=== PATIENT | male | born 1975 | race Caucasian/White ===

== ENCOUNTER 2023-11-29 09:25 | Emergency (ER) | payer BC, SELFPAY ==
[2023-11-29 09:40] VITALS: BP 138/98; PULSE 88; TEMP 36.8; O2SAT 98; BMI 27.9
[2023-11-29 10:09] LABS: Basophils Absolute Auto 0.1 10^3/uL (0.0-0.1); Basophils Percent Auto 0.7 % (0.2-2.0); Eosinophils Absolute Auto 0.1 10^3/uL (0.0-0.7); Eosinophils Percent Auto 1.1 % (0.9-7.0); Hematocrit 45.7 % (42.0-54.0); Hemoglobin 15.9 g/dL (14.0-18.0); Immature Granulocytes Abs Auto 0.13 10^3/uL (0.00-0.03); Immature Granulocytes Pct Auto 1.5 % (0.0-0.5); Lymphocytes Absolute Auto 2.2 10^3/uL (1.2-3.8); Lymphocytes Percent Auto 26.7 % (20.5-60.0); Mean Corpuscular HGB Conc 34.8 g/dL (29.9-35.2); Mean Corpuscular Hemoglobin 31.8 pg (25.9-34.0); Mean Corpuscular Volume 91.4 fL (80.0-94.0); Mean Platelet Volume 9.6 fL (9.5-13.5); Monocytes Absolute Auto 0.8 10^3/uL (0.3-0.8); Monocytes Percent Auto 8.9 % (1.7-12.0); Neutrophils Absolute Auto 5.1 10^3/uL (1.4-6.5); Neutrophils Percent Auto 61.1 % (43.0-75.0); Platelet Count 224 10^3/uL (150-450); White Blood Count 8.4 10^3/uL (4.0-11.0)
[2023-11-29 10:15] LABS: Anion Gap 11.8; BUN Creatinine Ratio 13.5; Calcium 9.5 mg/dL (8.5-10.1); Chloride 100 mmol/L (98-107); Estimated GFR (African America >60 (>=60 mL/min/1.73m^2); Estimated GFR (Non-African Ame >60 (>=60 mL/min/1.73m^2); Glucose 130 mg/dL (74-106); Potassium 3.8 mmol/L (3.5-5.1); Sodium 136 mmol/L (136-145)
[2023-11-29 10:16] LABS: Bilirubin Urine NEGATIVE (NEGATIVE); Blood Urine NEGATIVE (NEGATIVE); Clarity Urine CLEAR (CLEAR); Color Urine LT. YELLOW (YELLOW); Glucose Urine UA NEGATIVE (NEGATIVE); Ketones Urine NEGATIVE (NEGATIVE); Leukocyte Esterase Urine NEGATIVE (NEGATIVE); Nitrite Urine NEGATIVE (NEGATIVE); Protein Urine NEGATIVE (NEG/TRACE); Specific Gravity Urine 1.025 (1.005-1.025); Urobilinogen Urine 0.2 EU/dL (0.2-1.0); pH Urine 6.5 (5.0-9.0)
[2023-11-29 10:28] LABS: WBC Urine NONE SEEN #/HPF (NONE SEEN)
[2023-11-29 10:29] LABS: Bacteria Urine NONE SEEN #/HPF (NONE SEEN); Cast Seen? NONE SEEN #/LPF (NONE SEEN); Crystals Seen? None Seen #/HPF (None Seen); Mucus Urine NONE SEEN (NONE SEEN); RBC Urine NONE SEEN #/HPF (0-2); Squamous Epithelial Cell Urine RARE #/LPF (NONE/RARE); Urine Culture Indicated NO
--- NOTE | 2023-11-29 10:35 | ED.MALEGU1 ---
HPI - Male Genitourinary General Chief complaint: Urogenital-Male Stated complaint: URINARY ISSUE, BACK PAIN Time Seen by Provider: 11/29/23 09:28 Source: patient Mode of arrival: walk-in Limitations: no limitations History of Present Illness HPI Narrative: 48-year-old male presents to the emergency department for frequency of urination. He does not have dysuria or hematuria. He has had this issue for several days and he is had this looked at in the past. No specific cause was ever found. He has had borderline diabetes but last time they checked his sugar it was not elevated. He is not on any oral hypoglycemics. No fever or unusual back pain. Related Data Home Medications ?Medication ?Instructions ?Recorded ?Confirmed No Known Home Medications 11/29/23 11/29/23 Allergies Allergy/AdvReac Type Severity Reaction Status Date / Time penicillamine Allergy Mild Unknown Verified 11/29/23 09:40 Review of Systems ROS Narrative A ten point review of systems is negative except as noted above. PFSH PFSH Social History Little interest or pleasure in doing things: not at all Feeling down, depressed, or hopeless: not at all Exam Narrative Exam Narrative: Nurses note and vital signs reviewed and patient is not hypoxic. General: The patient appears well and in no apparent distress. Patient is resting comfortably on cart. Skin: Warm, dry, no pallor noted. There is no rash noted. Head: Normocephalic, atraumatic Eye: Normal conjunctiva, no drainage Ears, Nose, Mouth, and Throat: oral mucosa is moist. Nares patent. Cardiovascular: Regular Rate and Rhythm Respiratory: Patient is in no distress, no accessory muscle use, lungs are clear to auscultation, no wheezing, rales or rhonchi Back: non-tender, no CVA tenderness bilaterally to percussion. GI: Soft and nontender Musculoskeletal: The patient has no evidence of calf tenderness, no pitting edema, symmetrical pulses noted bilaterally Neurological: A&O, normal speech Psychiatric: Cooperative Constitutional Vital Signs, click to edit/add: Last Vital Signs Temp 98.2 F 11/29/23 09:40 Pulse 88 11/29/23 09:40 Resp 18 11/29/23 09:40 BP 138/98 H 11/29/23 09:40 Pulse Ox 98 11/29/23 09:40 O2 Del Method Room Air 11/29/23 09:40 Course Vital Signs Vital signs: Vital Signs Temperature 98.2 F 11/29/23 09:40 Pulse Rate 88 11/29/23 09:40 Respiratory Rate 18 11/29/23 09:40 Blood Pressure 138/98 H 11/29/23 09:40 Pulse Oximetry 98 11/29/23 09:40 Oxygen Delivery Method Room Air 11/29/23 09:40 Temperature 98.2 F 11/29/23 09:40 Pulse Rate 88 11/29/23 09:40 Respiratory Rate 18 11/29/23 09:40 Blood Pressure 138/98 H 11/29/23 09:40 Pulse Oximetry 98 11/29/23 09:40 Oxygen Delivery Method Room Air 11/29/23 09:40 MDM - Male Genitourinary MDM Narrative Medical decision making narrative: CBC, BMP, and urinalysis are negative. The cause is uncertain. He is being referred to urology for follow-up. Treatment diagnosis and follow-up were discussed with the patient. Differential Diagnosis Differential diagnosis: Likely urinary tract infection, urethritis, prostatitis and acute retention of urine Lab Data Attestation: I reviewed the patient's lab results. Labs: Lab Results 11/29/23 11/29/23 Range/Units 09:55 10:00 WBC 8.4 (4.0-11.0) 10^3/uL RBC 5.00 (4.70-6.10) 10^6/uL Hgb 15.9 (14.0-18.0) g/dL Hct 45.7 (42.0-54.0) % MCV 91.4 (80.0-94.0) fL MCH 31.8 (25.9-34.0) pg MCHC 34.8 (29.9-35.2) g/dL RDW 12.0 (11.0-15.0) % Plt Count 224 (150-450) 10^3/uL MPV 9.6 (9.5-13.5) fL Neut % (Auto) 61.1 (43.0-75.0) % Lymph % (Auto) 26.7 (20.5-60.0) % [place] % (Auto) 8.9 (1.7-12.0) % Eos % (Auto) 1.1 (0.9-7.0) % Baso % (Auto) 0.7 (0.2-2.0) % Neut # (Auto) 5.1 (1.4-6.5) 10^3/uL Lymph # (Auto) 2.2 (1.2-3.8) 10^3/uL [place] # (Auto) 0.8 (0.3-0.8) 10^3/uL Eos # (Auto) 0.1 (0.0-0.7) 10^3/uL Baso # (Auto) 0.1 (0.0-0.1) 10^3/uL Abs Immat Gran (auto) 0.13 H (0.00-0.03) 10^3/uL Imm/Tot Granulo (auto) 1.5 H (0.0-0.5) % Sodium 136 (136-145) mmol/L Potassium 3.8 (3.5-5.1) mmol/L Chloride 100 (98-107) mmol/L Carbon Dioxide 28.0 (21.0-32.0) mmol/L Anion Gap 11.8 BUN 15.0 (7.0-18.0) mg/dL Creatinine 1.11 (0.70-1.30) mg/dL Est GFR ( Amer) >60 (>=60 mL/min/1.73m^2) Est GFR (Non-Af Amer) >60 (>=60 mL/min/1.73m^2) BUN/Creatinine Ratio 13.5 Glucose 130 H (74-106) mg/dL Calcium 9.5 (8.5-10.1) mg/dL Urine Color Lt. yellow (YELLOW) Urine Clarity Clear (CLEAR) Urine pH 6.5 (5.0-9.0) Ur Specific [place] 1.025 (1.005-1.025) Urine Protein Negative (NEG/TRACE) mg/dL Urine Glucose (UA) Negative (NEGATIVE) mg/dL Urine Ketones Negative (NEGATIVE) mg/dL Urine Occult Blood Negative (NEGATIVE) Urine Nitrite Negative (NEGATIVE) Urine Bilirubin Negative (NEGATIVE) Urine Urobilinogen 0.2 (0.2-1.0) EU/dL Ur Leukocyte Esterase Negative (NEGATIVE) Urine RBC None seen (0-2) #/HPF Urine WBC None seen (NONE SEEN) #/HPF Ur Squamous Epith Cells Rare (NONE/RARE) #/LPF Urine Crystals None seen (None Seen) #/HPF Urine Bacteria None seen (NONE SEEN) #/HPF Urine Casts None seen (NONE SEEN) #/LPF Urine Mucus None seen (NONE SEEN) Ur Culture Indicated? No Discharge Plan Discharge Chief Complaint: Urogenital-Male Clinical Impression: Urinary frequency Patient Disposition: Home, Self-Care Time of Disposition Decision: 10:34 Condition: Good Mode of Transportation: Private Vehicle Prescriptions / Home Meds: No Action No Known Home Medications Print Language: Slovak Instructions: Urinary Urgency and Frequency (DC) Referrals: TOSHA GUAJARDO [Primary Care Provider] - 1 week Steven Alexis MD [Physician] - 1 week
[2023-11-29 10:40] VITALS: BP 134/78; PULSE 72; O2SAT 98
== END 2023-11-29 10:40 | disposition home or self-care (01) ==
PROVIDERS: Emergency Provider Emergency Medicine; PCP Physician Assistant
DX: R35.0 Frequency of micturition (principal)
CPT/HCPCS: 36415; 80048; 81001; 85025; 99283

== ENCOUNTER 2024-07-15 07:25 | Outpatient (OUT) | payer BC, SELFPAY ==
--- OUTSIDE RECORDS SUMMARY | 2024-07-15 07:27 | XMS_ITS | CCD ---
Author Organization [facility] Care Team Providers Care Processing Rep Name Role Phone JESSICA GUAJARDO Admitting Unavailable JESSICA GUAJARDO Attending Unavailable HELENA TIM Primary Care Unavailable CED JULES Consulting Unavailable JESSICA GUAJARDO Consulting Unavailable HELENA TIM Primary Care Physician Helena Tim MD Primary Care Provider Fran Montano MD Unavailable Damon WOLFE Attending Unavailable Leta Elizalde Attending Unavailable Leta Elizalde Attending Unavailable Helena Tim MD Primary Care Provider Alvin Lay DO Emergency Provider HELENA TIM Attending Unavailable JESSICA GUAJARDO Attending Unavailable JESSICA GUAJARDO Attending Unavailable Alvin Lay Attending Unavailable Alivn Lay Admitting Unavailable Helena Tim Primary Care Unavailable Allergies Allergy Classification Reported Allergen(s) Allergy Type Date of Onset Reaction(s) Facility (1 source) Penicillin Drug Allergy [facility] Repository (3 sources) Penicillins; Translations: [penicillins] Drug allergy 06-19-2024 [facility] (9 sources) Penicillin V Drug Allergy 07-14-2022 Unknown [facility] Work Phone: Medications Current Medications Medication Drug Class(es) Dates Sig (Normalized) Sig (Original) busPIRone hydrochloride 10 mg oral tablet (2 sources) Start: 06-25-2024 take 1 tablet by mouth twice daily as needed for anxiety busPIRone (Buspar) 10 MG tablet Indications: Generalized anxiety disorder (CMS/HCC) Take 1 tablet (10 mg) by mouth 2 (two) times a day as needed (Anxiety) 60 tablet 06/25/2024 Active Multivitamin preparation (1 source) Start: 12-20-2023 multivitamin Refill(s) 0 Start Date: 12/20/23 Status: Ordered Ebro (No Known Home Meds) (1 source) Start: 06-19-2024 Ebro (No Known Home Meds) Active June 19, 2024 12:00am Saw palmetto extract (1 source) Start: 12-20-2023 saw palmetto See Instructions, Refill(s) 0, Oral Start Date: 12/20/23 Status: Ordered Completed/Discontinued Medications Medication Drug Class(es) Dates Sig (Normalized) Sig (Original) omeprazole 20 mg delayed release oral capsule (6 sources) Proton Pump Inhibitor Start: 02-12-2023 End: 11-13-2023 take 1 capsule by mouth once daily in the morning omeprazole (PriLOSEC) [address] capsule Indications: Gastroesophageal reflux disease without esophagitis take 1 capsule by mouth every morning 30 capsule 02/12/2023 11/13/2023 Discontinued (Other) Start: 07-13-2022 End: 06-19-2024 take 1 tablet by mouth once daily Omeprazole 20 mg Tablet,Delayed Release (Dr/Ec) Discontinued 20 MG PO Daily July 13, 2022 12:00am June 19, 2024 8:04am Pneumatic Walking Boot unit (1 source) Start: 04-30-2023 End: 06-19-2024 Pneumatic Walking Boot unit Discontinued 0 .Route 1 April 30, 2023 1:00am June 19, 2024 8:04am As directed sulfamethoxazole 800 mg / trimethoprim 160 mg oral tablet (1 source) Dihydrofolate Reductase Inhibitor Antibacterial, Sulfonamide Antimicrobial Start: 07-13-2022 End: 04-30-2023 take 1 tablet by mouth every twelve hours Sulfamethoxazole- Trimethoprim (Bactrim Ds) 800-160 mg tablet Discontinued 1 TAB PO Q12H 14 7 July 13, 2022 12:00am April 30, 2023 10:56am 24 hr venlafaxine 75 mg extended release oral capsule (4 sources) Serotonin and Norepinephrine Reuptake Inhibitor Start: 02-12-2023 End: 11-13-2023 take 1 capsule by mouth once daily in the morning venlafaxine XR (Effexor XR) 75 MG 24 hr capsule Indications: Generalized anxiety disorder (CMS/HCC) take 1 capsule by mouth every morning 30 capsule 02/12/2023 11/13/2023 Discontinued (Other) Start: 07-13-2022 End: 06-19-2024 take 1 tablet by mouth once daily Venlafaxine 75 mg Tablet Discontinued 75 MG PO Daily July 13, 2022 12:00am June 19, 2024 8:04am Problems Active Problems Problem Classification Problem Date Documented Date Episodic/Chronic Anxiety disorders (11 sources) Generalized anxiety disorder; Translations: [Generalized anxiety disorder] Onset: 07-14-2022 07-14-2022 Chronic Cardiac dysrhythmias (6 sources) Palpitations; Translations: [Palpitations] 06-25-2024 Episodic Diabetes mellitus with complications (20 sources) Type 2 diabetes mellitus; Translations: [Type 2 diabetes mellitus with unspecified complications] Onset: 08-16-2022 Resolved: 06-24-2024 05-15-2023 Chronic Diabetes mellitus without complication (1 source) Type 2 diabetes mellitus without complication; Translations: [Type 2 diabetes mellitus without complications] Onset: 12-20-2023 Chronic Disorders of lipid metabolism (11 sources) Mixed hyperlipidemia; Translations: [Mixed hyperlipidemia] Onset: 07-14-2022 07-14-2022 Chronic Esophageal disorders (11 sources) Gastroesophageal reflux disease without esophagitis; Translations: [Gastro-esophageal reflux disease without esophagitis] Onset: 07-14-2022 07-14-2022 Chronic Genitourinary symptoms and ill-defined conditions (10 sources) Increased frequency of urination; Translations: [Frequency of micturition] Onset: 12-20-2023 Episodic Nonspecific chest pain (8 sources) Tight chest; Translations: [Other chest pain] Onset: 06-19-2024 06-19-2024 Episodic Other screening for suspected conditions (not mental disorders or infectious disease) (1 source) Encounter for screening for malignant neoplasm of prostate; Translations: [Screening for malignant neoplasm done] Onset: 12-20-2023 Episodic Urinary tract infections (1 source) Acute urinary tract infection; Translations: [Urinary tract infection, site not specified] 02-07-2023 Episodic Comment on above: Problem List clean-u p per request of Phys. EHR Cmte Past or Other Problems Problem Classification Problem Date Documented Da te Episodic/Chronic Diabetes mellitus without complication (9 sources) Impaired fasting glycemia; Translations: [Impaired fasting glucose] Onset: 07-14-2022 Resolved: 08-16-2022 08-16-2022 Episodic Other connective tissue disease (9 sources) Muscle pain; Translations: [Myalgia, unspecified site] Onset: 03-30-2023 03-30-2023 Episodic Other liver diseases (9 sources) ALT (SGPT) level raised; Translations: [Elevated ALT measurement] Onset: 07-14-2022 07-14-2022 Episodic Other nervous system disorders (9 sources) Disorder of muscle; Translations: [Myopathy, unspecified] Onset: 03-30-2023 Resolved: 05-15-2023 05-15-2023 Chronic Other nutritional; endocrine; and metabolic disorders (9 sources) Overweight; Translations: [Overweight] Onset: 07-14-2022 07-14-2022 Episodic Substance-related disorders (9 sources) Nicotine dependence; Translations: [Nicotine dependence, chewing tobacco, uncomplicated] Onset: 07-14-2022 Resolved: 05-15-2023 05-15-2023 Chronic Syncope (9 sources) Syncope; Translations: [Syncope and collapse] Onset: 11-13-2023 11-13-2023 Episodic Comment on above: Problem List clean-u p per request of Phys. EHR Cmte Results Test Name Value Interpretation Reference Range Facility Alanine aminotransferase [En zymatic activity/volume] in Serum or PlasmaOrdered By: Alvin Lay on 06-19-2024 ALT [Catalytic activity/Vol] Alanine aminotransferase [Enzymatic activity/volume] in Serum or Plasma 7-52 [facility] Albumin [Mass/volume] in Ser um or Plasma by Bromocresol green (BCG) dye binding methoOrdered By: Alvin Lay on 06-19-2024 Albumin BCG dye [Mass/Vol] Albumin [Mass/volume] in Serum or Plasma by Bromocresol green (BCG) dye binding metho 3.5-5.7 [facility] Alkaline phosphatase [Enzyma tic activity/volume] in Serum or PlasmaOrdered By: Alvin Lay on 06-19-2024 ALP [Catalytic activity/Vol] Alkaline phosphatase [Enzymatic activity/volume] in Serum or Plasma 34-104 [facility] Aspartate aminotransferase [ Enzymatic activity/volume] in Serum or PlasmaOrdered By: Alvin Lay on 06-19-2024 AST [Catalytic activity/Vol] Aspartate aminotransferase [Enzymatic activity/volume] in Serum or Plasma 13-39 [facility] B-Type Natriuretic Peptideon 06-19-2024 Natriuretic peptide B (Bld) [Mass/Vol] 10.0 pg/mL Normal 5-100 [facility] Comment on above: Result Comment: PERF ORMED BY: [place] [address] PATHOLOGIST [employer] YUSRA BE M.D. Performed By: #### P T, HEPATIC, HS TROP, BMP, CBC, BNP, CK #### [address] Basic Metabolic Panelon 05-28 Anion gap [Moles/Vol] 12.4 mmol/L Normal 6.0-15.0 [facility] Comment on above: Performed By: #### P T, HEPATIC, HS TROP, BMP, CBC, BNP, CK #### [address] Calcium [Mass/Vol] 9.7 mg/dL Normal 8.6-10.3 [facility] Comment on above: Performed By: #### P T, HEPATIC, HS TROP, BMP, CBC, BNP, CK #### [address] Chloride [Moles/Vol] 104 mmol/L Normal 98-107 [facility] Comment on above: Performed By: #### P T, HEPATIC, HS TROP, BMP, CBC, BNP, CK #### [address] CO2 [Moles/Vol] 23.5 mmol/L Normal 21.0-31.0 [facility] Comment on above: Performed By: #### P T, HEPATIC, HS TROP, BMP, CBC, BNP, CK #### [address] Creatinine [Mass/Vol] 0.98 mg/dL Normal 0.70-1.30 [facility] Comment on above: Performed By: #### P T, HEPATIC, HS TROP, BMP, CBC, BNP, CK #### [address] Creatinine Clr Calc Pharmacy 105.09 Normal [facility] Comment on above: Result Comment: PERF ORMED BY: [place] [address] PATHOLOGIST [employer] YUSRA BE M.D. Performed By: #### P T, HEPATIC, HS TROP, BMP, CBC, BNP, CK #### [address] GFR/1.73 sq M.predicted MDRD (S/P/Bld) [Vol rate/Area] mL/min/{1.73_m2} Normal [facility] Comment on above: Performed By: #### P T, HEPATIC, HS TROP, BMP, CBC, BNP, CK #### [address] Glucose [Mass/Vol] 104 mg/dL High 70-100 [facility] Comment on above: Result Comment: [place] Glucose Reference Range is dependent on time and content of last meal. Glucose of more than 200 mg/dL in a nonstressed, ambulatory subject supports the diagnosis of Diabetes Mellitus. ADA recommended reference range Performed By: #### P T, HEPATIC, HS TROP, BMP, CBC, BNP, CK #### [address] Potassium [Moles/Vol] 3.9 mmol/L Normal 3.5-5.1 [facility] Comment on above: Performed By: #### P T, HEPATIC, HS TROP, BMP, CBC, BNP, CK #### [address] Sodium [Moles/Vol] 136 mmol/L Normal 136-145 [facility] Comment on above: Performed By: #### P T, HEPATIC, HS TROP, BMP, CBC, BNP, CK #### [place] [address] [place] Urea nitrogen [Mass/Vol] 21 mg/dL Normal 7-25 [facility] Comment on above: Performed By: #### P T, HEPATIC, HS TROP, BMP, CBC, BNP, CK #### [facility] [address] [place] [address] [facility] Basophils Auto (Bld) [#/Vol] Ordered By: Alvin Lay on 06-19-2024 Basophils (Bld) [#/Vol] Automated basophil count 0.0-0.2 [facility] Basophils/100 WBC Auto (Bld) Ordered By: Alvin Lay on 06-19-2024 Basophils/100 WBC (Bld) Automated basophil % . [facility] Bilirubin.direct [Mass/volum e] in Serum or PlasmaOrdered By: Alvin Lay on 06-19-2024 Bilirubin.direct [Mass/Vol] Bilirubin.direct [Mass/volume] in Serum or Plasma 0.03-0.18 [facility] Bilirubin.total [Mass/volume ] in Serum or PlasmaOrdered By: Alvin Lay on 06-19-2024 Bilirubin [Mass/Vol] Bilirubin.total [Mass/volume] in Serum or Plasma 0.3-1.0 [facility] Calcium [Mass/volume] in Ser um or PlasmaOrdered By: Alvin Lay on 06-19-2024 Calcium [Mass/Vol] Calcium [Mass/volume ] in Serum or Plasma 8.6-10.3 [facility] Carbon dioxide, total [Moles /volume] in Serum or PlasmaOrdered By: Alvin Lay on 06-19-2024 CO2 [Moles/Vol] Carbon dioxide, tota l [Moles/volume] in Serum or Plasma 21.0-31.0 [facility] Chloride [Moles/volume] in S beata or PlasmaOrdered By: Alvin Lay on 06-19-2024 Chloride [Moles/Vol] Chloride [Moles/vol ume] in Serum or Plasma 98-107 [facility] Complete Blood Count Auto Di ffon 06-19-2024 Basophils (Bld) [#/Vol] 0.1 10*3/uL Normal 0.0-0.2 [facility] Comment on above: Result Comment: PERF ORMED BY: [place] [address] PATHOLOGIST [employer] YUSRA BE M.D. Performed By: #### P T, HEPATIC, HS TROP, BMP, CBC, BNP, CK #### [address] Basophils/100 WBC (Bld) 1.0 % Normal . [facility] Comment on above: Performed By: #### P T, HEPATIC, HS TROP, BMP, CBC, BNP, CK #### [address] Eosinophils (Bld) [#/Vol] 0.1 10*3/uL Normal 0.0-0.45 [facility] Comment on above: Performed By: #### P T, HEPATIC, HS TROP, BMP, CBC, BNP, CK #### [address] Eosinophils/100 WBC (Bld) 1.7 % Normal . [facility] Comment on above: Performed By: #### P T, HEPATIC, HS TROP, BMP, CBC, BNP, CK #### [address] Erythrocyte distribution width (RBC) [Ratio] 12.7 % Normal 12.0-14.8 [facility] Comment on above: Performed By: #### P T, HEPATIC, HS TROP, BMP, CBC, BNP, CK #### [address] Hematocrit (Bld) [Volume fraction] 42.5 % Normal 38.8-50.0 [facility] Comment on above: Performed By: #### P T, HEPATIC, HS TROP, BMP, CBC, BNP, CK #### [address] Hemoglobin (Bld) [Mass/Vol] 15.1 g/dL Normal 13.0-17.0 [facility] Comment on above: Performed By: #### P T, HEPATIC, HS TROP, BMP, CBC, BNP, CK #### [address] Lymphocytes (Bld) [#/Vol] 1.6 10*3/uL Normal 1.00-4.8 [facility] Comment on above: Performed By: #### P T, HEPATIC, HS TROP, BMP, CBC, BNP, CK #### [address] Lymphocytes/100 WBC (Bld) 27.3 % Normal . [facility] Comment on above: Performed By: #### P T, HEPATIC, HS TROP, BMP, CBC, BNP, CK #### [address] MCH (RBC) [Entitic mass] 31.5 pg Normal 27.5-35.2 [facility] Comment on above: Performed By: #### P T, HEPATIC, HS TROP, BMP, CBC, BNP, CK #### [address] MCV (RBC) [Entitic vol] 88.7 fL Normal 83.5-101 [facility] Comment on above: Performed By: #### P T, HEPATIC, HS TROP, BMP, CBC, BNP, CK #### [address] Mean Corpuscular HGB Conc 35.5 g/dL Normal 32.5-35.6 [facility] Comment on above: Performed By: #### P T, HEPATIC, HS TROP, BMP, CBC, BNP, CK #### [address] Monocytes (Bld) [#/Vol] 0.6 10*3/uL Normal 0.0-0.8 [facility] Comment on above: Performed By: #### P T, HEPATIC, HS TROP, BMP, CBC, BNP, CK #### [address] Monocytes/100 WBC (Bld) 15.53 % Normal 0.00-20.00 [facility] Comment on above: Performed By: #### P T, HEPATIC, HS TROP, BMP, CBC, BNP, CK #### [address] Monocytes/100 WBC (Bld) 10.4 % Normal . [facility] Comment on above: Performed By: #### P T, HEPATIC, HS TROP, BMP, CBC, BNP, CK #### [address] Neutrophils (Bld) [#/Vol] 3.6 10*3/uL Normal 1.8-7.7 [facility] Comment on above: Performed By: #### P T, HEPATIC, HS TROP, BMP, CBC, BNP, CK #### [address] Neutrophils/100 WBC (Bld) 59.6 % Normal . [facility] Comment on above: Performed By: #### P T, HEPATIC, HS TROP, BMP, CBC, BNP, CK #### [address] NRBC% 0.1 /100{WBC} Normal 0-0.5 [facility] Comment on above: Performed By: #### P T, HEPATIC, HS TROP, BMP, CBC, BNP, CK #### [address] Platelet mean volume (Bld) [Entitic vol] 8.2 fL Normal 6.6-10.1 [facility] Comment on above: Performed By: #### P T, HEPATIC, HS TROP, BMP, CBC, BNP, CK #### [address] Platelets (Bld) [#/Vol] 223 10*3/uL Normal 150-450 [facility] Comment on above: Performed By: #### P T, HEPATIC, HS TROP, BMP, CBC, BNP, CK #### [address] RBC (Bld) [#/Vol] 4.79 10*6/uL Normal 3.90-5.60 [facility] Comment on above: Performed By: #### P T, HEPATIC, HS TROP, BMP, CBC, BNP, CK #### [address] WBC (Bld) [#/Vol] 6.0 10*3/uL Normal 4.1-10.5 [facility] Comment on above: Performed By: #### P T, HEPATIC, HS TROP, BMP, CBC, BNP, CK #### [address] Creatine Kinaseon 06-19-2024 CK [Catalytic activity/Vol] 229 U/L High 30-223 [facility] Comment on above: Performed By: #### P T, HEPATIC, HS TROP, BMP, CBC, BNP, CK #### [address] Creatine kinase [Enzymatic a ctivity/volume] in Serum or PlasmaOrdered By: Alvin Lay on 06-19-2024 CK [Catalytic activity/Vol] Creatine kinase [Enzymatic activity/volume] in Serum or Plasma [facility] 30-223 [facility] Creatinine [Mass/volume] in Serum or PlasmaOrdered By: Alvin Lay on 06-19-2024 Creatinine [Mass/Vol] Creatinine [Mass/v olume] in Serum or Plasma 0.70-1.30 [facility] ECG 12 lead ECGon 06-19-2024 ECG 12 lead ECG [facility] [place] [address] Electrocardiograph Report Signed Patient: Tim Proctor MR#: [id number] : 1975 Acct:[id number] Age/Sex: 48 / M ADM Date: 06/19/24 Loc: ER Room: Type: [facility] ER Attending Dr: Ordering Provider: Alvin Lay DO Date of Service: 06/19/24 ECG/ECG 12 lead ECG: CHEST PAIN Copies to: Test Reason : Blood Pressure : */* mmHG Vent. Rate : 106 BPM Atrial Rate : 106 BPM P-R Int : 188 ms QRS Dur : 90 ms QT Int : 320 ms P-R-T Axes : 58 75 37 degrees QTcB Int : 425 ms Sinus tachycardia Otherwise normal ECG When compared with ECG of 13-Jul-2022 12:40, No significant change was found Confirmed by Alvin Lay DO ([id number]) on 06/19/2024 10:40:01 AM Referred By: Electronically Signed By: Alvin Lay DO Transcribed By: MUS Signed By Alvin Lay DO 5 1040 Normal [facility] Eosinophils Auto (Bld) [#/Vo l]Ordered By: Alvin Lay on 06-19-2024 Eosinophils (Bld) [#/Vol] Automated eosinophil count 0.0-0.45 [facility] Eosinophils/100 WBC Auto (Bl d)Ordered By: Alvin Lay on 06-19-2024 Eosinophils/100 WBC (Bld) Automated eosinophil % . [facility] Erythrocyte distribution wid th Auto (RBC) [Ratio]Ordered By: Alvin Lay on 06-19-2024 Erythrocyte distribution width (RBC) [Ratio] Erythrocyte distribution width [Ratio] by Automated count 12.0-14.8 [facility] Globulin Calc (S) [Mass/Vol] Ordered By: Alvin Lay on 06-19-2024 Globulin (S) [Mass/Vol] Serum globulin measurement by calculation (mass/volume) [facility] Glucose [Mass/volume] in Ser um or PlasmaOrdered By: Alvin Lay on 06-19-2024 Glucose [Mass/Vol] Glucose [Mass/volume ] in Serum or Plasma High 70-100 [facility] Comment on above: ADA recommended refe rence rangeRandom Glucose Reference Range is dependent on time and content of last meal. Glucose of more than 200 mg/dL in a nonstressed, ambulatory subject supports the diagnosis of Diabetes Mellitus. Hematocrit Auto (Bld) [Volum e fraction]Ordered By: Alvin Lay on 06-19-2024 Hematocrit (Bld) [Volume fraction] Hematocrit [Volume Fraction] of Blood by Automated count 38.8-50.0 [facility] Hemoglobin [Mass/volume] in BloodOrdered By: Alvin Lay on 06-19-2024 Hemoglobin (Bld) [Mass/Vol] Hemoglobin [Mass/volume] in Blood 13.0-17.0 [facility] Hepatic Panelon 06-19-2024 Albumin [Mass/Vol] 4.8 g/dL Normal 3.5-5.7 [facility] Comment on above: Performed By: #### P T, HEPATIC, HS TROP, BMP, CBC, BNP, CK #### [facility] [address] [place] [address] [place] Albumin/Globulin [Mass ratio] 1.9 {ratio} Normal [facility] Comment on above: Performed By: #### P T, HEPATIC, HS TROP, BMP, CBC, BNP, CK #### [address] ALP [Catalytic activity/Vol] 68 U/L Normal 34-104 [facility] Comment on above: Performed By: #### P T, HEPATIC, HS TROP, BMP, CBC, BNP, CK #### [address] ALT [Catalytic activity/Vol] 33 U/L Normal 7-52 [facility] Comment on above: Performed By: #### P T, HEPATIC, HS TROP, BMP, CBC, BNP, CK #### [place] [address] [place] AST [Catalytic activity/Vol] 29 U/L Normal 13-39 [facility] Comment on above: Performed By: #### P T, HEPATIC, HS TROP, BMP, CBC, BNP, CK #### [place] [address] [place] Bilirubin [Mass/Vol] 0.6 mg/dL Normal 0.3-1.0 [facility] Comment on above: Performed By: #### P T, HEPATIC, HS TROP, BMP, CBC, BNP, CK #### [place] [address] [place] Bilirubin,Indirect 0.5 mg/dL Normal [facility] Comment on above: Performed By: #### P T, HEPATIC, HS TROP, BMP, CBC, BNP, CK #### [place] [address] [place] Bilirubin.indirect [Mass/Vol] 0.10 mg/dL Normal 0.03-0.18 [facility] Comment on above: Performed By: #### P T, HEPATIC, HS TROP, BMP, CBC, BNP, CK #### [facility] [address] Globulin (S) [Mass/Vol] 2.5 g/dL Normal [facility] Comment on above: Performed By: #### P T, HEPATIC, HS TROP, BMP, CBC, BNP, CK #### [facility] [address] Protein [Mass/Vol] 7.3 g/dL Normal 6.4-8.9 [facility] Comment on above: Performed By: #### P T, HEPATIC, HS TROP, BMP, CBC, BNP, CK #### [facility] [address] INR in Platelet poor plasma by Coagulation assayOrdered By: Alvin Lay on 06-19-2024 INR Coag (PPP) [Relative time] INR in Platelet poor plasma by Coagulation assay [facility] Comment on above: INR Therapeutic Rang e A) Pre- and Peroperative OAT started two weeks before surgery. NOT HIP SURGERY: 1.5 - 2.5 HIP SURGERY: 2 - 3B) Primary and secondary prevention of venous THROMBOSIS: 2 - 3C) Active venous thrombosis, pulmonary embolismand prevention of recurrent venous thrombosis: 2 - 3D) Prevention of arterial thromboembolismincluding patients with mechanical heart valves: 3 - 4.5 Leukocytes [#/volume] correc edvin for nucleated erythrocytes in Blood by Automated counOrdered By: Alvin Lay on 06-19-2024 WBC corrected for nucl RBC Auto (Bld) [#/Vol] Leukocytes [#/volume] corrected for nucleated erythrocytes in Blood by Automated coun 4.1-10.5 [facility] Lymphocytes Auto (Bld) [#/Vo l]Ordered By: Alvin Lay on 06-19-2024 Lymphocytes (Bld) [#/Vol] Lymphocytes [#/volume] in Blood by Automated count 1.00-4.8 [facility] Lymphocytes/100 WBC Auto (Bl d)Ordered By: Alvin Lay on 06-19-2024 Lymphocytes/100 WBC (Bld) Lymphocytes/100 leukocytes in Blood by Automated count . [facility] MCH Auto (RBC) [Entitic mass ]Ordered By: Alvin Lay on 06-19-2024 MCH (RBC) [Entitic mass] MCH [Entitic mass] by Automated count 27.5-35.2 [facility] MCHC Auto (RBC) [Mass/Vol]Or dered By: Alvin Lay on 06-19-2024 MCHC (RBC) [Mass/Vol] MCHC [Mass/volume] by Automated count 32.5-35.6 [facility] MCV Auto (RBC) [Entitic vol] Ordered By: Alvin Lay on 06-19-2024 MCV (RBC) [Entitic vol] MCV [Entitic volume] by Automated count 83.5-101 [facility] Monocyte distribution width [Entitic volume] in Blood by AutomatedOrdered By: Alvin Lay on 06-19-2024 Monocyte distribution width Auto (Bld) [Entitic vol] Monocyte distribution width [Entitic volume] in Blood by Automated 0.00-20.00 [facility] Monocytes Auto (Bld) [#/Vol] Ordered By: Alvin Lay on 06-19-2024 Monocytes (Bld) [#/Vol] Automated blood monocyte count 0.0-0.8 [facility] Monocytes/100 WBC Auto (Bld) Ordered By: Alvin Lay on 06-19-2024 Monocytes/100 WBC (Bld) Automated monocyte % . [facility] Natriuretic peptide B [Mass/ Vol]Ordered By: Alvin Lay on 06-19-2024 Natriuretic peptide B (Bld) [Mass/Vol] BNP ser/plas 5-100 [facility] Neutrophils Auto (Bld) [#/Vo l]Ordered By: Alvin Lay on 06-19-2024 Neutrophils (Bld) [#/Vol] Neutrophils [#/volume] in Blood by Automated count 1.8-7.7 [facility] Neutrophils/100 WBC Auto (Bl d)Ordered By: Alvin Lay on 06-19-2024 Neutrophils/100 WBC (Bld) Automated neutrophil % . [facility] No Panel InformationOrdered By: Alvin Lay on 06-19-2024 Estimated GFR (CKD-EPI) > 60.0 mL/Min [facility] Creatinine Clearance (Chem 105.09 [facility] Nucleated erythrocytes [Pres ence] in Blood by Automated countOrdered By: Alvin Lay on 06-19-2024 Nucleated RBC Auto Ql (Bld) Nucleated erythrocytes [Presence] in Blood by Automated count 0-0.5 [facility] Platelet mean volume Auto (B ld) [Entitic vol]Ordered By: Alvin Lay on 06-19-2024 Platelet mean volume (Bld) [Entitic vol] Platelet mean volume [Entitic volume] in Blood by Automated count 6.6-10.1 [facility] Platelets Auto (Bld) [#/Vol] Ordered By: Alvin Lay on 06-19-2024 Platelets (Bld) [#/Vol] Platelets [#/volume] in Blood by Automated count 150-450 [facility] Potassium [Moles/volume] in Serum or PlasmaOrdered By: Alvin Lay on 06-19-2024 Potassium [Moles/Vol] Potassium [Moles/v olume] in Serum or Plasma 3.5-5.1 [facility] Protein [Mass/volume] in Ser um or PlasmaOrdered By: Alvin Lay on 06-19-2024 Protein [Mass/Vol] Protein [Mass/volume ] in Serum or Plasma 6.4-8.9 [facility] Prothrombin Time INRon 06-19 INR Coag (PPP) [Relative time] 0.9 {INR} Normal [facility] Comment on above: Result Comment: INR Therapeutic Range A) Pre- and Peroperative OAT started two weeks before surgery. NOT HIP SURGERY: 1.5 - 2.5 HIP SURGERY: 2 - 3 B) Primary and secondary prevention of venous THROMBOSIS: 2 - 3 C) Active venous thrombosis, pulmonary embolism and prevention of recurrent venous thrombosis: 2 - 3 D) Prevention of arterial thromboembolism including patients with mechanical heart valves: 3 - 4.5 PERFORMED BY: [facility] [address] [place] [address] PATHOLOGIST CARRIER ASSOCIATE YUSRA BE M.D. Performed By: #### P T, HEPATIC, HS TROP, BMP, CBC, BNP, CK #### [facility] [address] [place] [address] [facility] PT Coag (PPP) [Time] 10.8 s Normal 9.0-12.9 [facility] Comment on above: Result Comment: A he matocrit value greater than 55% may lead to inaccurate results in coagulation testing. Patients having hematocrit values >55% require a special collection tube for coagulation studies. Please contact the laboratory at [phone] for redraw instructions. Performed By: #### P T, HEPATIC, HS TROP, BMP, CBC, BNP, CK #### [facility] [address] [place] [address] [facility] Prothrombin time (PT)Ordered By: Alvin Lay on 06-19-2024 PT Coag (PPP) [Time] Prothrombin time (PT) 9.0- 12.9 [facility] Comment on above: A hematocrit value g reater than 55% may lead to inaccurate results in coagulation testing. Patients having hematocrit values >55% require a special collection tube for coagulation studies. Please contact the laboratory at [phone] for redraw instructions. RBC Auto (Bld) [#/Vol]Ordere d By: Alvin Lay on 06-19-2024 RBC (Bld) [#/Vol] Erythrocytes [#/volu me] in Blood by Automated count 3.90-5.60 [facility] Serum or plasma albumin/glob ulin mass ratioOrdered By: Alvin Lay on 06-19-2024 Albumin/Globulin [Mass ratio] Serum or plasma albumin/globulin mass ratio [facility] Serum or plasma anion gap de terminationOrdered By: Alvin Lay on 06-19-2024 Anion gap [Moles/Vol] Serum or plasma an ion gap determination 6.0-15.0 [facility] Serum or plasma non-glucuron idated bilirubin measurement (mass/volume)Ordered By: Alvin Lay on 06-19-2024 Bilirubin.indirect [Mass/Vol] Serum or plasma non-glucuronidated bilirubin measurement (mass/volume) [facility] Sodium [Moles/volume] in Ser um or PlasmaOrdered By: Alvin Lay on 06-19-2024 Sodium [Moles/Vol] Sodium [Moles/volume ] in Serum or Plasma 136-145 [facility] Troponin I High Sensitivityo n 06-19-2024 Troponin I High Sensitivity 4 Normal 0-20 [facility] Comment on above: Result Comment: The Troponin units of report have been changed to meet the Chest Pain Accreditation requirement, element EC5.M1l2. Troponin units are changed from pg/ml to ng/L. Also, the decimal is removed and results are in whole numbers. PERFORMED BY: [place] [address] PATHOLOGIST CARRIER ASSOCIATE YUSRA BE M.D. Performed By: #### H S TROP #### [address] Troponin I High Sensitivity 5 Normal 0-20 [facility] Comment on above: Result Comment: The Troponin units of report have been changed to meet the Chest Pain Accreditation requirement, element EC5.M1l2. Troponin units are changed from pg/ml to ng/L. Also, the decimal is removed and results are in whole numbers. PERFORMED BY: [place] [address] PATHOLOGIST CARRIER ASSOCIATE YUSRA BE M.D. Performed By: #### P T, HEPATIC, HS TROP, BMP, CBC, BNP, CK #### [address] Troponin I.cardiac [Mass/vol ume] in Serum or Plasma by Detection limit <= 0.01 ng/Ordered By: Alvin Lay on 06-19-2024 Troponin I.cardiac DL <= 0.01 ng/mL [Mass/Vol] Troponin I.cardiac [Mass/volume] in Serum or Plasma by Detection limit <= 0.01 ng/ 0-20 [facility] Comment on above: The Troponin units o f report have been changed to meet the Chest Pain Accreditation requirement, element EC5.M1l2. Troponin units are changed from pg/ml to ng/L. Also, the decimal is removed and results are in whole numbers. Urea nitrogen [Mass/volume] in Serum or PlasmaOrdered By: Alvin Lay on 06-19-2024 Urea nitrogen [Mass/Vol] Urea nitrogen [Mass/volume] in Serum or Plasma 09-19 [facility] WBC Auto (Bld) [#/Vol]Ordere d By: Alvin Lay on 06-19-2024 WBC (Bld) [#/Vol] Leukocytes [#/volume ] in Blood by Automated count 4.1-10.5 [facility] X-ray reportOrdered By: Aurelio Tavera on 06-19-2024 Study report [facility] [address] [address] XRay Report Signed Patient: Tim Proctor MR #: [id number] : 1975 Acct:[id number] Age/Sex: 48 / M ADM Date: 5 Loc: ER Room: Type: [facility] ER Attending Dr: Copies to: Alvin Lay DO~ Ordering Provider: Alvin Lay DO Date of Service: 06/19/24 XR/XR chest 1V portable: CHEST PAIN SINGLE VIEW CHEST CLINICAL HISTORY: Shortness breath, chest tightness COMPARISON: 07/13/2022 FINDINGS: Unremarkable cardiomediastinal. Lungs clear. No effusion or pneumothorax. XR/XR chest 1V portable IMPRESSION: NO ACUTE FINDINGS Impression dictated by: Jorge Tavera M.D.06/19/2024 8:39 AM Dictation Location: [place] [address] Transcribed By: [facility] 06/19/24 0839 Dictated By: Jorge Tavear MD 06/19/24 0835 Signed By: 06/19/24 0839 [facility] Work Phone: XR chest 1V portableon 06-19 XR chest 1V portable [address] [address] XRay Report Signed Patient: Tim Proctor MR#: [id number] : 1975 Acct:[id number] Age/Sex: 48 / M ADM Date: 06/19/24 Loc: ER Room: Type: [facility] ER Attending Dr: Copies to: Alvin Lay DO Ordering Provider: Alvin Lay DO Date of Service: 06/19/24 XR/XR chest 1V portable: CHEST PAIN SINGLE VIEW CHEST CLINICAL HISTORY: Shortness breath, chest tightness COMPARISON: 07/13/2022 FINDINGS: Unremarkable cardiomediastinal. Lungs clear. No effusion or pneumothorax. XR/XR chest 1V portable IMPRESSION: NO ACUTE FINDINGS Impression dictated by: Jorge Tavera M.D.06/19/2024 8:39 AM Dictation Location: [place] [address] Transcribed By: [facility] 06/19/24 0839 Dictated By: Jorge Tavera MD 06/19/24 0835 Signed By: 06/19/24 0839 Normal [facility] ALBUMIN, RANDOM URINE W/CREA HUBERon 06-07-2024 ALBUMIN, URINE 0.4 mg/dL Normal See Note: [facility] Comment on above: Result Comment: Refe rence Range: Reference Range Not established Performed By: #### 6 399, 496, 49822, 7600, 6517 #### [facility] [address], [address] [place] [address] Equipment Mechanic Specialist: Yony Bo MD ALBUMIN/CREATININE RATIO, RANDOM URINE 3 mg/g creat Normal <30 [facility] Comment on above: Result Comment: The ADA defines abnormalities in albumin excretion as follows: Albuminuria Category Result (mg/g creatinine) Normal to Mildly increased <30 Moderately increased 30-299 Severely increased > OR = 300 The ADA recommends that at least two of three specimens collected within a 3-6 month period be abnormal before considering a patient to be within a diagnostic category. Performed By: #### 6 399, 496, 56135, 7600, 6517 #### [facility] [address], [address] [place] [address] Equipment Mechanic Specialist: Yony Bo MD Creatinine (U) [Mass/Vol] 148 mg/dL Normal 20-320 [facility] Comment on above: Performed By: #### 6 399, 496, 27103, 7600, 6517 #### [facility] [address], [address] [place] [address] Equipment Mechanic Specialist: Yony Bo MD CBC (INCLUDES DIFF/PLT)on Basophils (Bld) [#/Vol] 0.062 10*3/uL Normal 0-200 [facility] Comment on above: Performed By: #### 6 399, 496, 43605, 7600, 6517 #### [facility] [place] [address] Equipment Mechanic Specialist: Yony Bo MD Basophils/100 WBC (Bld) 0.9 % Normal [facility] Comment on above: Performed By: #### 6 399, 496, 10815, 7600, 6517 #### [facility] [place] [address] Equipment Mechanic Specialist: Yony Bo MD Eosinophils (Bld) [#/Vol] 0.11 10*3/uL Normal 15-500 [facility] Comment on above: Performed By: #### 6 399, 496, 87563, 7600, 6517 #### [facility] of [place] [address] Equipment Mechanic Specialist: Yony Bo MD Eosinophils/100 WBC (Bld) 1.6 % Normal [facility] Comment on above: Performed By: #### 6 399, 496, 99868, 7600, 6517 #### [facility] [place] [address] Equipment Mechanic Specialist: Yony Bo MD Erythrocyte distribution width (RBC) [Ratio] 12.1 % Normal 11.0-15.0 [facility] Comment on above: Performed By: #### 6 399, 496, 73528, 7600, 6517 #### [facility] [place] [address] Equipment Mechanic Specialist: Yony Bo MD Hematocrit (Bld) [Volume fraction] 48.7 % Normal 38.5-50.0 [facility] Comment on above: Performed By: #### 6 399, 496, 65987, 7600, 6517 #### [facility] of [place] [address] Equipment Mechanic Specialist: Yony Bo MD Hemoglobin (Bld) [Mass/Vol] 16.3 g/dL Normal 13.2-17.1 [facility] Comment on above: Performed By: #### 6 399, 496, 05957, 7600, 6517 #### [facility] of [place] [address] Equipment Mechanic Specialist: Yony Bo MD Lymphocytes (Bld) [#/Vol] 1.697 10*3/uL Normal 850-3900 [facility] Comment on above: Performed By: #### 6 399, 496, 69560, 7600, 6517 #### [facility] of [place] [address] Equipment Mechanic Specialist: Yony Bo MD Lymphocytes/100 WBC (Bld) 24.6 % Normal [facility] Comment on above: Performed By: #### 6 399, 496, 77853, 7600, 6517 #### [facility] of [place] [address] Equipment Mechanic Specialist: Yony Bo MD MCH (RBC) [Entitic mass] 31.4 pg Normal 27.0-33.0 [facility] Comment on above: Performed By: #### 6 399, 496, 49888, 7600, 6517 #### [facility] of [place] [address] Equipment Mechanic Specialist: Yony Bo MD MCHC (RBC) [Mass/Vol] 33.5 g/dL Normal 32.0-36.0 [facility] Comment on above: Result Comment: For adults, a slight decrease in the calculated MCHC value (in the range of 30 to 32 g/dL) is most likely not clinically significant; however, it should be interpreted with caution in correlation with other red cell parameters and the patient's clinical condition. Performed By: #### 6 399, 496, 10856, 7600, 6517 #### [place] [address] Equipment Mechanic Specialist: Yony Bo MD MCV (RBC) [Entitic vol] 93.8 fL Normal 80.0-100.0 [facility] Comment on above: Performed By: #### 6 399, 496, 51813, 7600, 6517 #### [facility] of [place] [address] Equipment Mechanic Specialist: Yony Bo MD Monocytes (Bld) [#/Vol] 0.621 10*3/uL Normal 200-950 [facility] Comment on above: Performed By: #### 6 399, 496, 04974, 7600, 6517 #### [facility] of [place] [address] Equipment Mechanic Specialist: Yony Bo MD Monocytes/100 WBC (Bld) 9.0 % Normal [facility] Comment on above: Performed By: #### 6 399, 496, 32412, 7600, 6517 #### [facility] of [place] [address] Equipment Mechanic Specialist: Yony Bo MD Neutrophils (Bld) [#/Vol] 4.409 10*3/uL Normal 4761-1608 [facility] Comment on above: Performed By: #### 6 399, 496, 26254, 7600, 6517 #### [facility] of [place] [address] Equipment Mechanic Specialist: Yony Bo MD Neutrophils/100 WBC (Bld) 63.9 % Normal [facility] Comment on above: Performed By: #### 6 399, 496, 17460, 7600, 6517 #### [facility] of [place] [address] Equipment Mechanic Specialist: Yony Bo MD Platelet mean volume (Bld) [Entitic vol] 10.7 fL Normal 7.5-12.5 [facility] Comment on above: Performed By: #### 6 399, 496, 63293, 7600, 6517 #### [facility] of [address] [place] [address] Equipment Mechanic Specialist: Yony Bo MD Platelets (Bld) [#/Vol] 249 10*3/uL Normal 140-400 [facility] Comment on above: Performed By: #### 6 399, 496, 30568, 7600, 6517 #### [facility] of [address], [address] [place] [address] Equipment Mechanic Specialist: Yony Bo MD RBC (Bld) [#/Vol] 5.19 10*6/uL Normal 4.20-5.80 [facility] Comment on above: Performed By: #### 6 399, 496, 82310, 7600, 6517 #### [facility] of [place] [address] Equipment Mechanic Specialist: Yony Bo MD WBC (Bld) [#/Vol] 6.9 10*3/uL Normal 3.8-10.8 [facility] Comment on above: Performed By: #### 6 399, 496, 47112, 7600, 6517 #### [facility] of [address], [address] [place] [address] Equipment Mechanic Specialist: Yony Bo MD [facility] 06-07-2024 Albumin [Mass/Vol] 5.0 g/dL Normal 3.6-5.1 [facility] Comment on above: Performed By: #### 6 399, 496, 03371, 7600, 6517 #### [facility] of [place] [address] Equipment Mechanic Specialist: Yony Bo MD Albumin/Globulin [Mass ratio] 2.0 {ratio} Normal 1.0-2.5 [facility] Comment on above: Performed By: #### 6 399, 496, 39152, 7600, 6517 #### [facility] of [place] [address] Equipment Mechanic Specialist: Yony Bo MD ALP [Catalytic activity/Vol] 87 U/L Normal 36-130 [facility] Comment on above: Performed By: #### 6 399, 496, 17418, 7600, 6517 #### [facility] of [place] [address] Equipment Mechanic Specialist: Yony Bo MD ALT [Catalytic activity/Vol] 45 U/L Normal 9-46 [facility] Comment on above: Performed By: #### 6 399, 496, 09047, 7600, 6517 #### [facility] of [place] [address] Equipment Mechanic Specialist: Yony Bo MD AST [Catalytic activity/Vol] 24 U/L Normal 10-40 [facility] Comment on above: Performed By: #### 6 399, 496, 02447, 7600, 6517 #### [facility] of [place] [address] Equipment Mechanic Specialist: Yony Bo MD Bilirubin [Mass/Vol] 0.5 mg/dL Normal 0.2-1.2 [facility] Comment on above: Performed By: #### 6 399, 496, 23360, 7600, 6517 #### [facility] of [place] [address] Equipment Mechanic Specialist: Yony Bo MD BUN/CREATININE RATIO SEE NOTE: Normal 6-22 [facility] Comment on above: Result Comment: Not Reported: BUN and Creatinine are within reference range. Performed By: #### 6 399, 496, 30471, 7600, 6517 #### [facility] of [address], [address] [place] [address] Equipment Mechanic Specialist: Yony Bo MD Calcium [Mass/Vol] 10.0 mg/dL Normal 8.6-10.3 [facility] Comment on above: Performed By: #### 6 399, 496, 56984, 7600, 6517 #### [facility] of [place] [address] Equipment Mechanic Specialist: Yony Bo MD Chloride [Moles/Vol] 101 mmol/L Normal 98-110 [facility] Comment on above: Performed By: #### 6 399, 496, 95015, 7600, 6517 #### [facility] [place] [address] Equipment Mechanic Specialist: Yony Bo MD CO2 [Moles/Vol] 30 mmol/L Normal 20-32 [facility] Comment on above: Performed By: #### 6 399, 496, 77681, 7600, 6517 #### [facility] [place] [address] Equipment Mechanic Specialist: Yony Bo MD Creatinine [Mass/Vol] 0.94 mg/dL Normal 0.60-1.29 [facility] Comment on above: Performed By: #### 6 399, 496, 35247, 0, 6517 #### [facility] [place] [address] Equipment Mechanic Specialist: Yony Bo MD GFR/1.73 sq M.predicted among non-blacks MDRD (S/P/Bld) [Vol rate/Area] 100 mL/min/{1.73_m2} Normal > OR = 60 [facility] Comment on above: Performed By: #### 6 399, 496, 76570, 0, 6517 #### [facility] [place] [address] Equipment Mechanic Specialist: Yony Bo MD Globulin (S) [Mass/Vol] 2.5 g/dL Normal 1.9-3.7 [facility] Comment on above: Performed By: #### 6 399, 496, 12869, 7600, 6517 #### [facility] [place] [address] Equipment Mechanic Specialist: Yony Bo MD Glucose [Mass/Vol] 146 mg/dL High 65-99 [facility] Comment on above: Result Comment: Fasting reference interval For someone without known diabetes, a glucose value >125 mg/dL indicates that they may have diabetes and this should be confirmed with a follow-up test. Performed By: #### 6 399, 496, 04774, 7600, 6517 #### [facility] [address], [address] [place] [address] Equipment Mechanic Specialist: Yony Bo MD Potassium [Moles/Vol] 5.0 mmol/L Normal 3.5-5.3 [facility] Comment on above: Performed By: #### 6 399, 496, 64293, 7600, 6517 #### [facility] [address], [address] [place] [address] Equipment Mechanic Specialist: Yony Bo MD Protein [Mass/Vol] 7.5 g/dL Normal 6.1-8.1 [facility] Comment on above: Performed By: #### 6 399, 496, 34068, 7600, 6517 #### [facility] [address], [address] [place] [address] Equipment Mechanic Specialist: Yony Bo MD Sodium [Moles/Vol] 138 mmol/L Normal 135-146 [facility] Comment on above: Performed By: #### 6 399, 496, 79197, 7600, 6517 #### [facility] [address], [address] [place] [address] Equipment Mechanic Specialist: Yony Bo MD Urea nitrogen [Mass/Vol] 14 mg/dL Normal 7-25 [facility] Comment on above: Performed By: #### 6 399, 496, 57179, 7600, 6517 #### [facility] [place] [address] Equipment Mechanic Specialist: Yony Bo MD HEMOGLOBIN A1con 06-07-2024 HEMOGLOBIN A1c 6.9 % of total Hgb High <5.7 [facility] Comment on above: Result Comment: For someone without known diabetes, a hemoglobin A1c value of 6.5% or greater indicates that they may have diabetes and this should be confirmed with a follow-up test. For someone with known diabetes, a value <7% indicates that their diabetes is well controlled and a value greater than or equal to 7% indicates suboptimal control. A1c targets should be individualized based on duration of diabetes, age, comorbid conditions, and other considerations. Currently, no consensus exists regarding use of hemoglobin A1c for diagnosis of diabetes for children. Performed By: #### 6 399, 496, 26033, 7600, 6517 #### [facility] [address], [address] [place] [address] Equipment Mechanic Specialist: Yony Bo MD LIPID PANEL, [facility] 05-27 Cholesterol [Mass/Vol] 171 mg/dL Normal <200 [facility] Comment on above: Order Comment: FASTI NG:YES FASTING: YES Performed By: #### 6 399, 496, 79266, 7600, 6517 #### [facility] [address], [address] [place] [address] Equipment Mechanic Specialist: Yony Bo MD Cholesterol in HDL [Mass/Vol] 42 mg/dL Normal > OR = 40 [facility] Comment on above: Order Comment: FASTI NG:YES FASTING: YES Performed By: #### 6 399, 496, 77427, 7600, 6517 #### [facility] [address], [address] [place] [address] Equipment Mechanic Specialist: Yony Bo MD Cholesterol in LDL [Mass/Vol] 105 mg/dL High [facility] Comment on above: Order Comment: FASTI NG:YES FASTING: YES Result Comment: Refe rence range: <100 Desirable range <100 mg/dL for primary prevention; <70 mg/dL for patients with CHD or diabetic patients with > or = 2 CHD risk factors. LDL-C is now calculated using the Mohinder calculation, which is a validated novel method providing better accuracy than the Friedewald equation in the estimation of LDL-C. Maikel WHALEN et al. JOCELYN. 2013;310(19): 1720-2496 (http://education.morphCARD.Redicam/faq/QCB840) Performed By: #### 6 399, 496, 19507, 7600, 6517 #### [facility] [address], [address] [place] [address] Equipment Mechanic Specialist: Yony Bo MD Cholesterol.total/Chol esterol in HDL [Mass ratio] 4.1 {ratio} Normal <5.0 [facility] Comment on above: Order Comment: FASTI NG:YES FASTING: YES Performed By: #### 6 399, 496, 85906, 7600, 6517 #### [facility] [address], [address] [place] [address] Equipment Mechanic Specialist: Yony Bo MD NON HDL CHOLESTEROL 129 mg/dL (calc) Normal <130 [facility] Comment on above: Order Comment: FASTI NG:YES FASTING: YES Result Comment: For patients with diabetes plus 1 major ASCVD risk factor, treating to a non-HDL-C goal of <100 mg/dL (LDL-C of <70 mg/dL) is considered a therapeutic option. Performed By: #### 6 399, 496, 84145, 7600, 6517 #### [facility] [address], [address] [place] [address] Equipment Mechanic Specialist: Yony Bo MD Triglyceride [Mass/Vol] 147 mg/dL Normal <150 [facility] Comment on above: Order Comment: FASTI NG:YES FASTING: YES Performed By: #### 6 399, 496, 44686, 7600, 6517 #### [facility] [address], [address] [place] [address] Equipment Mechanic Specialist: Yony Bo MD PSA, TOTALon 06-07-2024 PSA, TOTAL 0.51 ng/mL Normal < OR = 4.00 [facility] Comment on above: Result Comment: The total PSA value from this assay system is standardized against the WHO standard. The test result will be approximately 20% lower when compared to the equimolar-standardized total PSA (Adi Jason). Comparison of serial PSA results should be interpreted with this fact in mind. This test was performed using the Siemens chemiluminescent method. Values obtained from different assay methods cannot be used interchangeably. PSA levels, regardless of value, should not be interpreted as absolute evidence of the presence or absence of disease. Performed By: #### 6 399, 496, 63112, 7600, 6517 #### [facility] [address], [address] [place] [address] Equipment Mechanic Specialist: Yony Bo MD Reminderson 05-09-2024 Reminders Reminders From: Sita Chahal To: EU - Administrative; Sent: 12/20/2023 11:12:10 EDT Show up: 03/12/2024 11:12:00 EST Subject: Ambulatory Reminder Due Date/Time: 06/10/2024 11:11:00 EDT Reminder/Recall patient needs scheduled with [facility] in [place] for a 6 month f/u LVM Normal [facility] Ambulatory Visit Summaryon 1 Ambulatory Visit Summary Ambulatory Visit Summary DOMI PROCTORMULUGETA Poe :1975 Visit Date:12/20/2023 Ambulatory Visit Instructions Your Diagnosis Urinary frequency Your Care Team Attending Physician - Tonio BARBER, Leta Mayer Primary Care Physician - MEETA THAKUR, HELENA Poe This Is Your Medications List multivitamin saw palmetto Procedures Performed Procedure on eye, Procedure on lower leg. Discharge Vitals Temperature (Temporal Artery) 37 ???C Heart Rate (Peripheral) 70 Respiratory Rate 16 Blood Pressure 136/87 Height 179 cm Height 70 in Weight 91 kg Weight 200.2 lb BMI 28.4 Medications What How Much When Instructions Unchanged multivitamin Unchanged saw palmetto See instructions Oral Allergies penicillins Problems Ongoing - Any problem that you are currently receiving treatment for. Urinary frequency Patient Survey You may receive a survey via text or e-mail asking about your office visit. Please share your experience with us by completing your survey. We appreciate your feedback and thank you for choosing us for your care. [facility] Urology Office/Clinic Noteon 12-20-2023 Urology Office/Clinic Note Urology Office/Clinic Note Chief Complaint frequency of urination HPI Staff New pt here for f/u to [facility] ER visit. Last seen IO 10/28/08 by [facility] for vasectomy consultation. Pt states that his frequency comes and goes. States that he has been diagnosed with diabetes but he does not take meds for it. [facility] ER 11/29/23 due to urinary frequency, ongoing for several days, wo dysuria or hematuria. UA was neg. Last urological imaging 07/13/22 [facility]. Most recent A1c 11/13/23 - 6.3 IPSS score is 9 PVR is 52ml. PSA 09/15/21 - 0.62 05/15/23 - 1.42 Dysuria:denies Incomplete bladder emptying: about half the time Hematuria: denies Frequency:less than half the time Urgency:less than half the time Nocturia:1x Stream:good steady Leaking: denies Post void dripping: denies Wearing pads/ Depends: denies Urge incontinence: denies Stress incontinence: denies Incontinence without Sensory Awareness: denies Abdominal pain: denies Flank pain: denies Sexual complaints: denies History of Present Illness Staff HPI reviewed and agree. Review of Systems PHQ Score Initial Depression Screen Score: 0 SCORE no fever, chills, malaise, myalgia. no rash/lesions. no chest pain, palpitations, or SOB. no abdominal pain, nausea, vomiting. no unilateral calf swelling, redness, pain Physical Exam Vitals & Measurements T: 37 ???C(Temporal Artery) HR: 70(Peripheral) RR: 16 BP: 136/87 HT: 70 in HT: 179 cm WT: 91 kg WT: 200.2 lb BMI: 28.4 General: nontoxic, well-nourished, appears stated age Mouth: moist mucosa Lungs: normal respiratory effort Cardio: regular rate, good distal perfusion Abdomen: nondistended, no suprapubic distention or tenderness, no CVA tenderness Neurologic: Grossly normal Skin: No rashes or suspicious lesions Assessment/Plan [facility] ER f/u 11/29/23 for urinary frequency. 11/29/23 - BUN 15, Cre 1.11, GFR >60, Glu 130 1. Urinary frequency (R35.0: Frequency of micturition) 07/13/22 CT abd/pelvis w/o con - kidneys and bladder unremarkable UA today negative for blood or infection PVR today 52ml IPSS 9 Pt here today for c/o frequency of urination. Pt reports he will get frequency intermittently over the past year. Pt reports he started when he was diagnosed with DM, which is well controlled at this time. Pt reports he drinks one cup of coffee in the morning and mineral water throughout the rest of the day. Pt has an occasional pop or beer. Advised pt that these are bladder irritants and could be contributing to the frequency. Pt denies constipation or history of kidney stones. Pt does report hematuria last year but this was associated with UTI per patient. Pt denies weak stream, perineal pain, hematuria, painful urination or painful ejaculation. Pt is currently taking no bladder/prostate medications. He does report starting saw palmetto and an Azo brand supplement which he can not remember the name/ingredients. We discussed treatment options including medication (Flomax, Alfuzosin) but patient would like to trial modifying behavioral habits at this time. Advised pt to call our office if he wishes to start medication and we will prescribe Flomax 0.4mg PO daily. Discussed SEs with patient today. -Increase fluids, minimize bladder irritants -Timed voids, double voids -If patient would like to start medication, he knows to call our office and we will send Flomax and schedule pt for 3mo f/u -DM control per PCP -F/U 6 months Ordered: 24096 Measure Post Void residual urine and/or bladder capacity by US- non-imaging E&M of New Patient Moderate 45-59 Min 93121 PSA Free & Total Urnls Dip Stick Auto w/o Microscopy POC 46540 2. Screening PSA (prostate specific antigen) (Z12.5: Encounter for screening for malignant neoplasm of prostate) PSAs: 09/17/21 - 0.62 05/16/23 - 1.42 Discussed with patient that while his PSA level is WNL, he did have a significant increase in between lab draws. Discussed with patient that since he does not have any symptoms of prostate infection/inflammation today, his prostate size could be contributing to his bothersome urination symptoms. Also discussed repeating PSA level to ensure stability. I did discuss possible MRI with patient if his PSA is significantly increased from April. Pt denies family history of prostate cancer. -Check PSA now (pt given order for [facility] to ensure same lab) -If elevated, will order prostate MRI -If stable, monitor PSA yearly Ordered: E&M of New Patient Moderate 45-59 Min 91098 3. Diabetes mellitus (E11.9: Type 2 diabetes mellitus without complications) 11/13/23 A1c - 6.3 Pt reports he was diagnosed with DM last year and his initial A1c was greater than 8. Pt was on metformin but was able to wean off of this med and A1c is well-controlled with diet/exercise. Advised pt that uncontrolled DM can certainly contribute to frequent urination. -See #1 Ordered: E&M of New Patient Moderate 45-59 Min 49744 Follow-up With When Contact Information G (more content not included)... [facility] Comment on above: Result Comment: Elec tronically Signed By: Tonio BARBER, Leta Mayer\.br\Date and Time Signed: 12/20/23 11:35 EDT HbA1c (Bld) [Mass fraction]o n 11-13-2023 Interpretation and review of laboratory results Abnormal [facility] - Hematology and Cell countson 11-13-2023 HbA1c (Bld) [Mass fraction] 6.3 % [facility] Urinalysis macro (dipstick) panel (U)on 11-13-2023 Bilirubin, UA Negative Negative - 4(70) +++ mg/dL [facility] Blood, UA Negative Negative - 50 Getachew/mcL [facility] Clarity, UA Clear [facility] Color, UA Yellow [facility] Glucose, UA Negative Negative - 2000(110) ++++ mg/dL [facility] Interpretation and review of laboratory results Normal [facility] Ketones, UA Negative Negative - 160(16) ++++ mg/dL [facility] Leukocytes, UA Negative Negative - 500+++ Poly/mcL [facility] Nitrite, UA Negative Negative - Positive [facility] pH, UA 5.0 5 - 9 [facility] Protein, UA Negative Negative - 2000(20) ++++ mg/dL [facility] Spec Grav, UA 1.025 1 - 1.03 [facility] Urobilinogen, UA 0.2 0.2 - 12 mg/dL [facility] Registrationon 08-20-2023 Registration [id number] [facility] Registration [id number] [facility] HEMOGLOBINon 07-12-2018 Hemoglobin (Bld) [Mass/Vol] 16.0 g/dL Normal 14.0-18.0 [facility] Comment on above: Performed By: #### H GB #### [facility] [address] [place] [address] Anish Lopez XR CHEST 2 Von 07-12-2018 XR CHEST 2 V Patient: TIM PROCTOR Exam Date: 07/12/2018 : 1975 Gender:M Ordering : DR JESSICA ROOT Admission #: [id number] Family : Order #: [id number] CLICK HERE TO VIEW EXAM RADIOLOGY REPORT PROCEDURE: RADIOGRAPH CHEST 2 VIEWS COMPARISON: None. INDICATIONS: Adult health examination. FINDINGS: LUNGS: No significant pulmonary parenchymal abnormalities. VASCULATURE: No increased pulmonary vasculature. PLEURA: No pneumothorax, effusion, or pleural thickening. CARDIAC: No cardiomegaly or cardiac silhouette abnormality. MEDIASTINUM: No visible mass or adenopathy. BONES: Slight right convex curvature of the thoracic spine. No fracture or visible bone lesion. OTHER: Negative. CONCLUSION: 1. No acute or suspicious cardiopulmonary process. Dictated by: Ced Jules M.D. on 07/12/2018 at 11:44 Approved by: Ced Jules M.D. on 07/12/2018 at 11:45 Normal [facility] Vital Signs Date Time Vital Sign Value Performing Clinician Facility 06-25-2024 13:37-0400 Body height 177.8 cm Jessica Guajardo PA Work Phone: [facility] 06-25-2024 13:37-0400 Body mass index (BMI) [Ratio] 29.59 kg/m2 Jessica Guajardo PA Work Phone: [facility] 06-25-2024 13:37-0400 Body weight 93.53 kg Jessica Guajardo PA Work Phone: [facility] 06-25-2024 13:37-0400 Diastolic blood pressure 86 mm[Hg] Jessica Boggsmer PA Work Phone: [facility] 06-25-2024 13:37-0400 Heart rate 83 /min Jessica Guajardo PA Work Phone: [facility] 06-25-2024 13:37-0400 Respiratory rate 16 /min Jessica Hemmer PA Work Phone: [facility] 06-25-2024 13:37-0400 SaO2% (BldA) [Mass fraction] 96 % Jessica Hemmer PA Work Phone: [facility] 06-25-2024 13:37-0400 Systolic blood pressure 122 mm[Hg] Jessica ROOT Work Phone: [facility] 06-19-2024 11:13-0400 Diastolic blood pressure 80 mm[Hg] Helena Tim MD Work Phone: [facility] 06-19-2024 11:13-0400 Heart rate 77 /min Helena Tim MD Work Phone: [facility] 06-19-2024 11:13-0400 Respiratory rate 16 /min Helena Tim MD Work Phone: [facility] 06-19-2024 11:13-0400 SaO2% (BldA) [Mass fraction] 97 % Helena Tim MD Work Phone: [facility] 06-19-2024 11:13-0400 Systolic blood pressure 125 mm[Hg] Helena Tim MD Work Phone: [facility] 06-19-2024 08:02-0400 Body height 177.8 cm Helena Tim MD Work Phone: [facility] 06-19-2024 08:02-0400 Body temperature 98.2 [degF] Helena Tim MD Work Phone: [facility] 06-19-2024 08:02-0400 Body weight 92 kg Helena Tim MD Work Phone: [facility] 06-10-2024 15:32-0400 Body height 177.8 cm Helena iTm MD Work Phone: [facility] 06-10-2024 15:32-0400 Body mass index (BMI) [Ratio] 30.85 kg/m2 Helena Tim MD Work Phone: [facility] 06-10-2024 15:32-0400 Body weight 97.52 kg Helena Tim MD Work Phone: [facility] 06-10-2024 15:32-0400 Diastolic blood pressure 82 mm[Hg] Helena Tim MD Work Phone: [facility] 06-10-2024 15:32-0400 Heart rate 92 /min Helena Tim MD Work Phone: [facility] 06-10-2024 15:32-0400 SaO2% (BldA) [Mass fraction] 97 % Helena Tim MD Work Phone: [facility] 06-10-2024 15:32-0400 Systolic blood pressure 128 mm[Hg] Helena Tim MD Work Phone: [facility] 12-20-2023 10:09-0400 Blood Pressure Location Leta Galea [facility] 12-20-2023 10:09-0400 Body temperature 98.6 [degF] Leta Galea [facility] 12-20-2023 10:09-0400 Diastolic blood pressure 87 mm[Hg] Leta Galea [facility] 12-20-2023 10:09-0400 Heart rate 70 /min Leta Galea [facility] 12-20-2023 10:09-0400 Respiratory rate 16 /min Leta Galea [facility] 12-20-2023 10:09-0400 Systolic blood pressure 136 mm[Hg] Leta Galea [facility] 11-13-2023 13:46-0400 Body height 177.8 cm Jessica ROOT Work Phone: [facility] 11-13-2023 13:46-0400 Body mass index (BMI) [Ratio] 29.79 kg/m2 Jessica Hemmer PA Work Phone: [facility] 11-13-2023 13:46-0400 Body weight 94.17 kg Jessica Hemmer PA Work Phone: [facility] 11-13-2023 13:46-0400 Diastolic blood pressure 88 mm[Hg] Jessica Hemmer PA Work Phone: [facility] 11-13-2023 13:46-0400 Heart rate 83 /min Jessica Hemmer PA Work Phone: [facility] 11-13-2023 13:46-0400 Respiratory rate 16 /min Jessica Hemmer PA Work Phone: [facility] 11-13-2023 13:46-0400 SaO2% (BldA) [Mass fraction] 95 % Jessica Hemmer PA Work Phone: [facility] 11-13-2023 13:46-0400 Systolic blood pressure 130 mm[Hg] Jessica Hemmer PA Work Phone: [facility] Healthcare Encounters Encounter Date Encounter Type Care Provider Facility Start: 06-25-2024 End: 06-25-2024 Bamboo flowsheet Jessica Guajardo PA Work Phone: [facility] Start: 06-25-2024 End: 06-25-2024 Bamboo flowsheet Jessica Guajardo PA Work Phone: [facility] Start: 06-25-2024 End: 06-25-2024 Office outpatient visit 25 minutes Jessica Guajardo PA Work Phone: [facility] Comment on above: Other chest pain (Pr imary Dx); Palpitations; Gastroesophageal reflux disease without esophagitis; Generalized anxiety disorder ([facility]/HCC) Start: 06-25-2024 End: 06-25-2024 ambulatory JESSICA GUAJARDO Not Available Start: 06-19-2024 ambulatory Leta Elizalde Facility :[facility] Start: 06-19-2024 End: 06-19-2024 Emergency department patient visit Helena Tim MD Work Phone: [facility] Work Phone: Start: 06-10-2024 End: 06-10-2024 Periodic preventive med est patient 40-64yrs Helena Tim MD Work Phone: [facility] Comment on above: Adult wellness visit (Primary Dx); Type 2 diabetes mellitus with other specified complication; Mixed hyperlipidemia (CMS/HCC); Urine test positive for microalbuminuria Start: 06-10-2024 End: 06-10-2024 ambulatory HELENA TIM Not Available Start: 06-10-2024 End: 06-10-2024 Bamboo flowsheet Helena Tim MD Work Phone: [facility] Start: 06-10-2024 End: 06-10-2024 Bamboo flowsheet Helena Tim MD Work Phone: [facility] Start: 06-10-2024 End: 06-10-2024 Patient encounter status Helena Tim MD Work Phone: [facility] Work Phone: Start: 12-20-2023 End: 12-20-2023 ambulatory Leta Elizalde Facility:[facility] Start: 12-20-2023 End: 12-20-2023 Patient encounter procedure Leta Elizalde [facility] Start: 11-29-2023 ambulatory Damon WOLFE Facilit y:[facility] Start: 11-13-2023 End: 11-13-2023 Bamboo flowsheet Jessica Guajardo PA Work Phone: [facility] Start: 11-13-2023 End: 11-13-2023 Bamboo flowsheet Jessica Guajardo PA Work Phone: [facility] Start: 11-13-2023 End: 11-13-2023 Office outpatient visit 25 minutes Jessica ROOT Work Phone: [facility] Comment on above: DM (diabetes mellitu s), type 2 with complications (CMS/HCC) (Primary Dx); Urine frequency Start: 11-13-2023 End: 11-13-2023 ambulatory JESSICA GUAJARDO Not Available Start: 08-20-2023 End: 08-20-2023 ambulatory Damon WOLFE Facility:[facility] Start: 07-19-2018 Encounter for genera l adult medical examination without abnormal findings JESSICA GUAJARDO [facility] Start: 07-12-2018 End: 07-13-2018 Patient encounter procedure JESSICA GUAJARDO Facility: Encounter for genera l adult medical examination without abnormal findings JESSICA GUAJARDO [facility] Procedures Date Procedure Procedure Detail Performing Clinician Start: 06-19-2024 Plain chest X-ray Helena Tim MD Work Phone: Start: 11-13-2023 Urnls dip stick/tabl et rgnt non-auto w/o micrscp Jessica Guajardo PA Work Phone: Start: 11-13-2023 Hemoglobin glycosyla edvin a1c Jessica Guajardo PA Work Phone: Procedure on eye Leta Gale a Procedure on lower leg Alysh a Galea Plan of Treatment Date Care Activity Detail Author Start: 06-06-2026 Screening for malign ant neoplasm of colon [facility] Start: 06-06-2025 Urine screening for protein Diabetes: Urine Protein Screening [facility] Start: 02-16-2025 Glaucoma screening Diabetes: R etinopathy Screening [facility] Start: 10-27-2024 Influenza vaccination Influenz a Vaccine (Season Ended) [facility] Start: 09-24-2024 End: 09-24-2024 Patient encounter procedure 09/24/2024 4:00 PM EDT Office Visit [facility] [address] [facility] [address] [place] [id number] Jessica Guajardo PA [address] [place] [address] [facility] Start: 09-05-2024 Hemoglobin A1c measurement Diabetes: Hemoglobin A1C [facility] Start: 06-25-2024 End: 06-25-2025 Cardiac stress study Procedure STRESS TEST TREADMILL Imaging Routine Other chest pain Palpitations Expected: 06/25/2024 (Approximate), Expires: 06/25/2025 [facility] Comment on above: Expected: 06/25/2024 (Approximate), Expires: 06/25/2025 Start: 06-25-2024 End: 06-25-2025 Holter monitor study Holter monitor Imaging Routine Other chest pain Palpitations Expected: 06/25/2024 (Approximate), Expires: 06/25/2025 [facility] Work Phone: Comment on above: Expected: 06/25/2024 (Approximate), Expires: 06/25/2025 Start: 06-25-2024 End: 06-25-2024 Patient encounter procedure 06/25/2024 1:30 PM EDT Office Visit [facility] [address] [place] [address] Jessica Guajardo PA [address] [place] [address] Arrived [facility] Comment on above: Arrived Start: 06-10-2024 End: 06-10-2024 Patient encounter procedure 06/10/2024 3:30 PM EDT Office Visit [facility] [address] [place] [address] Helena Tim MD [address] [place] [address] Arrived [facility] Comment on above: Arrived Start: 05-14-2024 Urine screening for protein Diabetes: Urine Protein Screening [facility] Start: 02-12-2024 Hemoglobin A1c measurement Diabetes: Hemoglobin A1C [facility] Start: 10-28-2023 Influenza vaccination Influenza Vacc ine (#1) [facility] Start: 08-15-2023 Hemoglobin A1c measurement Diabetes: Hemoglobin A1C [facility] Start: 1975 Screening for malign ant neoplasm of colon [facility] Patient Education Chest pain [facility] Work Phone: Patient referral [facility] Work Phone: Immunizations Immunization Date Immunization Notes Care Provider Fa cility 05-15-2023 tetanus toxoid, redu polo diphtheria toxoid, and acellular pertussis vaccine, adsorbed Jessica ROOT Work Phone: [facility] Payers Date Payer Category Payer Self-pay 2024 Unknown [id number] 2022 [employer] Blue [employer] BCBS Memb er Subscriber Plan / Payer (Effective 2022-Present) Name: Proctor Domimulugeta Member ID: [id number] Relation to Subscriber: Self Name: Tim Proctor Subscriber ID: [id number] Payer ID: Not on file Type: Not on file Address: [address] [place] [id number] 2022 Unknown BCBS BCBS [id number] [id number] 2022-Present [phone] [address] [place] [id number] 2022 Unknown [id number] 2022 Unknown [id number] 1975 Unknown [id number] 1975 Unknown [id number] 727 1975 Unknown [id number] 727 1975 Unknown [id number] 727 1975 Unknown [id number] 727 1975 Unknown [id number] 1259 1975 Unknown [id number] 9 1975 Unknown [id number] 1259 1959 Unknown [id number] Unknown [id number] 531 Social History Date Type Detail Facility Start: 11-13-2023 End: 12-20-2023 Tobacco smoking status Never smoked tobacco (finding) [facility] Tobacco smoking status Never [facility] Start: 05-15-2023 End: 06-09-2024 Sex Assigned At Male [facility] Start: 05-15-2023 Tobacco use and exposure User of smokeless tobacco [facility] End: 2023 History of tobacco use Chews Tobacco [facility] Start: 05-15-2023 End: 06-25-2024 Alcoholic beverage intake Current drinker of alcohol (finding) [facility] Start: 05-15-2023 End: 06-09-2024 Alcoholic beverage intake [facility] Start: 1975 Sex assigned at Not on file [facility] Start: 11-13-2023 End: 06-25-2024 Tobacco use and exposure Former smokeless tobacco user [facility] How often to you hav e a drink containing alcohol? 2-3 time sa week [facility] How many standard dr inks containing alcohol do you have on a typical day? 1 or 2 [facility] How often do you hav e 6 or more drinks on 1 occasion? Never [facility] Within the last year , have you been afraid of your partner or ex-partner? No [facility] Do you belong to any clubs or organizations such as taoism groups, unions, fraternal or athletic groups, or school groups? Yes [facility] Are you now , , , , never or living with a partner? [facility] How often to you hav e a drink containing alcohol? 2-4 times a month [facility] How many standard dr inks containing alcohol do you have on a typical day? 3 or 4 [facility] How often do you hav e 6 or more drinks on 1 occasion? Less than monthly [facility] Do you feel stress - tense, restless, nervous, or anxious, or unable to sleep at night because your mind is troubled all the time - these days [OSQ] To some extent [facility] (I/We) worried wheth er (my/our) food would run out before (I/we) got money to buy more. Never true [facility] Start: 06-10-2024 End: 06-25-2024 Tobacco smoking status NHIS Ex-smoker [facility] History of tobacco use Current smoker [facility] Start: 06-19-2024 Sex Male (finding) [facility] Start: 1975 Sex Assigned At Male [facility] Functional Status Date Assessment Result Facility 12-20-2023 Functional Status N/A [facility] Clinical Notes 11-13-2023 to 06-25-2024 IVETT Dillard - 06/25/2024 1:30 PM Adan Tim MD - 06/10/2024 3:42 PM Adan Tim MD - 06/10/2024 3:42 PM Adan Tim MD - 06/10/2024 3:41 PM EDT Note Date & Type Note Facility 06-25-2024 History of Present illness Narrative Images from the original note were not included. Subjective Patient ID: Tim Proctor is a 49 y.o. male who presents for [facility] ER follow up. Tim is present today for [facility] ER follow up on 06/19/24. Dx. Chest pain. No new meds added was advised to see PCP to get order for stress test and/or holter monitor. The chest pain is off and on and he does get a fluttering in his chest off/on. His watch does have the capability to tell his if he is in afib and/or irregular rhythm and that has all been normal. States he only gets these symptoms at night or when he gets up in the morning. Has not had any alcohol in the last month due to being on a carnivore diet. Before that only drank about a 6 pack a week. Did restart the Omeprazole three days ago. Has noted reflux type symptoms. Admits his anxiety is worse when he is having symptoms. No current outpatient medications on file prior to visit. No current facility-administered medications on file prior to visit. I have reviewed and reconciled the history and medication list with the patient today. Allergies Allergen Reactions Penicillin V Unknown Social History Tobacco Use Smoking status: Former Smokeless tobacco: Former Types: Chew Quit date: 2023 Vaping Use Vaping status: Never Used Substance Use Topics Alcohol use: Yes Alcohol/week: 7.0 standard drinks of alcohol Types: 6 Cans of beer, 1 Standard drinks or equivalent per week Drug use: Never Family History Problem Relation Name Age of Onset Anemia Mother Vitaminn B12 deficiency Diabetes Mother Nephrolithiasis Sister Diabetes Sister No Known Problems Son Heart failure Maternal Grandfather Past Medical History: Diagnosis Date Anxiety Diabetes mellitus (CMS/HCC) Elevated ALT measurement GERD (gastroesophageal reflux disease) History of seborrheic keratosis Hyperlipidemia (CMS/HCC) Past Surgical History: Procedure Laterality Date EYE SURGERY retina EYE SURGERY Right 2023 Lens replacement FEMUR SURGERY 1984 hip Visit Vitals BP 122/86 Pulse 83 Resp 16 Ht 5' 10 Wt 206 lb 3.2 oz SpO2 96% BMI 29.59 kg/m Smoking Status Former BSA 2.15 m Review of Systems Constitutional: Negative for chills, fatigue and fever. Respiratory: Negative for cough, shortness of breath and wheezing. Cardiovascular: Positive for chest pain and palpitations. Negative for leg swelling. Gastrointestinal: Negative for abdominal pain, constipation, diarrhea, nausea and vomiting. Reflux Skin: Negative for rash. Psychiatric/Behavioral: The patient is nervous/anxious. Objective Physical Exam Constitutional: General: He is not in acute distress. Appearance: Normal appearance. HENT: Head: Normocephalic and atraumatic. Eyes: General: No scleral icterus. Cardiovascular: Rate and Rhythm: Normal rate and regular rhythm. Heart sounds: No murmur heard. Pulmonary: Effort: Pulmonary effort is normal. No respiratory distress. Breath sounds: Normal breath sounds. No wheezing, rhonchi or rales. Musculoskeletal: General: No swelling. Skin: General: Skin is warm and dry. Neurological: General: No focal deficit present. Mental Status: He is alert and oriented to person, place, and time. Psychiatric: Mood and Affect: Mood normal. Behavior: Behavior normal. Assessment/Plan Diagnoses and all orders for this visit: Other chest pain - Holter monitor; Future - STRESS TEST TREADMILL; Future The patient was seen today in follow up of recent hospital ER visit. All available hospital records/labs/diagnostics were reviewed and discussed with the patient. ER discharge meds were reviewed. Any changes to plan are as noted. Palpitations - Holter monitor; Future - STRESS TEST TREADMILL; Future Will obtain Holter Monitor and Stress Test for further evaluation at this time. R/o ischemic changes that can be causing pt's symptoms. Gastroesophageal reflux disease without esophagitis Continue Omeprazole as prescribed. He started this again recently. Reviewed how reflux symptoms can worsen or mimic cardiac symptoms. Generalized anxiety disorder (CMS/HCC) - busPIRone (Buspar) 10 MG tablet; Take 1 tablet (10 mg) by mouth 2 (two) times a day as needed (Anxiety) Advised patient it is common for anxiety to worsen or mimic cardiac symptoms. He is agreeable to trying Buspar prn. Reviewed how the medication works, potential s/e, and dosing instructions. Contact office if symptoms do not improve. Follow up in about 3 months (around 09/24/2024) for Diabetes. documented in this encounter [facility] 06-10-2024 History of Present illness Narrative Associated Problem(s): Urine test positive for microalbuminuria Resolved Encourage treatment such as Farxiga and Jardiance Associated Problem(s): Mixed hyperlipidemia (CMS/HCC) Ldl goal is less than 100 but patient declines treatment at this time I would recommend Lipitor 40mg daily Associated Problem(s): Type 2 diabetes mellitus with other specified complication No Tobacco use Follow ADA 1800 diet low carbohydrate Continue Med Compliance Goal LDL less than 100 Goal BP 130/80 Goal HgbA1c < 7.0% Monitor Feet, monitor for infection Needs Exercise Yearly eye exams Prior to your visit today we reviewed your chart and outlined testing and treatment needed for your care. Reviewed poissble complications of diabetes including, loss of vision, kidney failure and increased risk of heart attacks and stroke. We made recommendations on how to control your blood sugars, and minimize your risk of these complications. We discussed your current barriers to a healthy living and importance of healthy diet and exercise. Patient refuses oral treatment at this time. He does have some numbness which could be related to neuropathy Associated Problem(s): Adult wellness visit [place] Alcohol consumption No Tobacco Seat Belt use Exercise Regularly No Text Drive Social Accountability Images from the original note were not included. Subjective Patient ID: Tim Proctor is a 48 y.o. male who presents for Annual Exam. Pt is here for his annual visit pt has no concerns Pt feet to tingle sometimes Quit Chew 6 pack a week No current outpatient medications on file prior to visit. No current facility-administered medications on file prior to visit. I have reviewed and reconciled the history and medication list with the patient today. Allergies Allergen Reactions Penicillin V Unknown Social History Tobacco Use Smoking status: Former Smokeless tobacco: Former Types: Chew Quit date: 1975 Vaping Use Vaping status: Never Used Substance Use Topics Alcohol use: Yes Alcohol/week: 7.0 standard drinks of alcohol Types: 6 Cans of beer, 1 Standard drinks or equivalent per week Drug use: Never Family History Problem Relation Name Age of Onset Anemia Mother Vitaminn B12 deficiency Diabetes Mother Nephrolithiasis Sister Diabetes Sister No Known Problems Son Past Medical History: Diagnosis Date Anxiety Diabetes mellitus (CMS/HCC) Elevated ALT measurement GERD (gastroesophageal reflux disease) History of seborrheic keratosis Hyperlipidemia (CMS/HCC) Past Surgical History: Procedure Laterality Date EYE SURGERY retina EYE SURGERY Right 2023 Lens replacement FEMUR SURGERY 1984 hip Visit Vitals BP 128/82 Pulse 92 Ht 5' 10 Wt 215 lb SpO2 97% BMI 30.85 kg/m Smoking Status Former BSA 2.19 m Review of Systems Constitutional: Negative for chills, fatigue, fever and unexpected weight change. Respiratory: Negative for cough and chest tightness. Cardiovascular: Negative for chest pain. Gastrointestinal: Negative for abdominal pain, blood in stool, constipation, diarrhea, nausea and vomiting. Genitourinary: Negative for dysuria, enuresis, frequency and hematuria. Musculoskeletal: Negative for back pain. Neurological: Positive for numbness. Negative for dizziness, tremors, syncope, facial asymmetry and speech difficulty. Tingling Psychiatric/Behavioral: Negative for agitation, behavioral problems, confusion and dysphoric mood. The patient is not nervous/anxious. Objective Physical Exam Vitals and nursing note reviewed. Constitutional: Appearance: Normal appearance. He is normal weight. HENT: Head: Normocephalic. Right Ear: Tympanic membrane, ear canal and external ear normal. Left Ear: Tympanic membrane normal. Nose: Nose normal. Mouth/Throat: Mouth: Mucous membranes are moist. Eyes: Extraocular Movements: Extraocular movements intact. Conjunctiva/sclera: Conjunctivae normal. Pupils: Pupils are equal, round, and reactive to light. Cardiovascular: Rate and Rhythm: Normal rate and regular rhythm. Pulses: Normal pulses. Heart sounds: Normal heart sounds. Pulmonary: Effort: Pulmonary effort is normal. Breath sounds: Normal breath sounds. Abdominal: General: Abdomen is flat. Musculoskeletal: General: Normal range of motion. Cervical back: Normal range of motion and neck supple. Skin: General: Skin is warm and dry. Capillary Refill: Capillary refill takes less than 2 seconds. Neurological: General: No focal deficit present. Mental Status: He is alert and oriented to person, place, and time. Mental status is at baseline. Psychiatric: Mood and Affect: Mood normal. Assessment/Plan Problem List Items Addressed This Visit Mixed hyperlipidemia (CMS/HCC) Ldl goal is less than 100 but patient declines treatment at this time I would recommend Lipitor 40mg daily Adult wellness visit - Primary [place] Alcohol consumption No Tobacco Seat Belt use Exercise Regularly No Text Drive Social Accountability Urine test positive for microalbuminuria Resolved Encourage treatment such as Farxiga and Jardiance Type 2 diabetes mellitus with other specified complication No Tobacco use Follow ADA 1800 diet low carbohydrate Continue Med Compliance Goal LDL less than 100 Goal BP 130/80 Goal HgbA1c < 7.0% Monitor Feet, monitor for infection Needs Exercise Yearly eye exams Prior to your visit today we reviewed your chart and outlined testing and treatment needed for your care. Reviewed poissble complications of diabetes including, loss of vision, kidney failure and increased risk of heart attacks and stroke. We made recommendations on how to control your blood sugars, and minimize your risk of these complications. We discussed your current barriers to a healthy living and importance of healthy diet and exercise. Patient refuses oral treatment at this time. He does have some numbness which could be related to neuropathy Follow up in about 3 months (around 09/09/2024), or if symptoms worsen or fail to improve, for Recheck. documented in this encounter [facility] 12-20-2023 Evaluation + Plan note Diagnostic Tests PendingPSA Free & Total 12/20/23 [facility] 12-20-2023 Hospital Discharge instructions Patient Education 12/20/2023 11:33:07 Urinary Frequency, Adult Urinary Frequency, Adult Urinary frequency means urinating more often than usual. You may urinate every 1 2 hours even though you drink a normal amount of fluid and do not have a bladder infection or condition. Although you urinate more often than normal, the total amount of urine produced in a day is normal. With urinary frequency, you may have an urgent need to urinate often. The stress and anxiety of needing to find a bathroom quickly can make this urge worse. This condition may go away on its own, or you may need treatment at home. Home treatment may include bladder training, exercises, taking medicines, or making changes to your diet. Follow these instructions at home: Bladder health Your health care provider will tell you what to do to improve bladder health. You may be told to: Keep a bladder diary. Keep track of: ?What you eat and drink. ?How often you urinate. ?How much you urinate. Follow a bladder training program. This may include: ?Learning to delay going to the bathroom. ?Double urinating, also called voiding. This helps if you are not completely emptying your bladder. ?Scheduled voiding. Do Kegel exercises. Kegel exercises strengthen the muscles that help control urination, which may help the condition. Eating and drinking Follow instructions from your health care provider about eating or drinking restrictions. You may be told to: Avoid caffeine. Drink fewer fluids, especially alcohol. Avoid drinking in the evening. Avoid foods or drinks that may irritate the bladder. These include coffee, tea, soda, artificial sweeteners, citrus, tomato-based foods, and chocolate. Eat foods that help prevent or treat constipation. Constipation can make urinary frequency worse. You may need to take these actions to prevent or treat constipation: ?Drink enough fluid to keep your urine pale yellow. ?Take ybqo-lwe-lbgkhjr or prescription medicines. ?Eat foods that are high in fiber, such as beans, whole grains, and fresh fruits and vegetables. ?Limit foods that are high in fat and processed sugars, such as fried or sweet foods. General instructions Take yhob-bvv-xesndcl and prescription medicines only as told by your health care provider. Keep all follow-up visits. This is important. Contact a health care provider if: You start urinating more often. You feel pain or irritation when you urinate. You notice blood in your urine. Your urine looks cloudy. You develop a fever. You begin vomiting. Get help right away if: You are unable to urinate. Summary Urinary frequency means urinating more often than usual. With urinary frequency, you may urinate every 1 2 hours even though you drink a normal amount of fluid and do not have a bladder infection or other bladder condition. Your health care provider may recommend that you keep a bladder diary, follow a bladder training program, or make dietary changes. If told by your health care provider, do Kegel exercises to strengthen the muscles that help control urination. Take evgj-xfb-onrhuoe and prescription medicines only as told by your health care provider. Contact a health care provider if your symptoms do not improve or get worse. This information is not intended to replace advice given to you by your health care provider. Make sure you discuss any questions you have with your health care provider. Document Revised: 09/17/2020 Document Reviewed: 09/17/2020 [employer] Patient Education 2023 [employer]. Follow Up Care 11/29/2023 10:48:14 With:Leta Barrios, URL Address: When:6 months Comments:pending PSA level [facility] 12-20-2023 Note Patient Education Urology Urinary Frequency, Adult Urinary frequency means urinating more often than usual. You may urinate every 1?2 hours even though you drink a normal amount of fluid and do not have a bladder infection or condition. Although you urinate more often than normal, the total amount of urine produced in a day is normal. With urinary frequency, you may have an urgent need to urinate often. The stress and anxiety of needing to find a bathroom quickly can make this urge worse. This condition may go away on its own, or you may need treatment at home. Home treatment may include bladder training, exercises, taking medicines, or making changes to your diet. Follow these instructions at home: Bladder health Your health care provider will tell you what to do to improve bladder health. You may be told to: ??? Keep a bladder diary. Keep track of: ? What you eat and drink. ? How often you urinate. ? How much you urinate. ??? Follow a bladder training program. This may include: ? Learning to delay going to the bathroom. ? Double urinating, also called voiding. This helps if you are not completely emptying your bladder. ? Scheduled voiding. ??? Do Kegel exercises. Kegel exercises strengthen the muscles that help control urination, which may help the condition. Eating and drinking Follow instructions from your health care provider about eating or drinking restrictions. You may be told to: ??? Avoid caffeine. ??? Drink fewer fluids, especially alcohol. ??? Avoid drinking in the evening. ??? Avoid foods or drinks that may irritate the bladder. These include coffee, tea, soda, artificial sweeteners, citrus, tomato-based foods, and chocolate. ??? Eat foods that help prevent or treat constipation. Constipation can make urinary frequency worse. You may need to take these actions to prevent or treat constipation: ? Drink enough fluid to keep your urine pale yellow. ? Take vmsi-qzp-hulgwkg or prescription medicines. ? Eat foods that are high in fiber, such as beans, whole grains, and fresh fruits and vegetables. ? Limit foods that are high in fat and processed sugars, such as fried or sweet foods. General instructions ??? Take nesd-ibk-nzkdngo and prescription medicines only as told by your health care provider. ??? Keep all follow-up visits. This is important. Contact a health care provider if: ??? You start urinating more often. ??? You feel pain or irritation when you urinate. ??? You notice blood in your urine. ??? Your urine looks cloudy. ??? You develop a fever. ??? You begin vomiting. Get help right away if: ??? You are unable to urinate. Summary ??? Urinary frequency means urinating more often than usual. With urinary frequency, you may urinate every 1?2 hours even though you drink a normal amount of fluid and do not have a bladder infection or other bladder condition. ??? Your health care provider may recommend that you keep a bladder diary, follow a bladder training program, or make dietary changes. ??? If told by your health care provider, do Kegel exercises to strengthen the muscles that help control urination. ??? Take euwl-szl-yekyhrv and prescription medicines only as told by your health care provider. ??? Contact a health care provider if your symptoms do not improve or get worse. This information is not intended to replace advice given to you by your health care provider. Make sure you discuss any questions you have with your health care provider. Document Revised: 09/17/2020 Document Reviewed: 09/17/2020 [employer] Patient Education ? 2023 [employer]. [facility] 11-13-2023 History of Present illness Narrative Images from the original note were not included. Subjective Patient ID: Tim Proctor is a 48 y.o. male who presents for diabetes. Tim is present today for follow up diabetes. Denies foot ulcers, hypoglycemia, tingling/numbness in extremities. Admits urine freuquency. Did check his BS at home once the other day and it was 195 and just started watching what he eats/drinks and checked it again and it was 146. Not on any current meds. Drinks a lot of water. Makes his own mineral water. Stopped eating sweets, sugars, pasta, potato, bread. Started Berberine supplement. Taking a methylated multivitamin. Currently working 12 hour shifts 6-7 days a week. Current Outpatient Medications on File Prior to Visit Medication Sig Dispense Refill [DISCONTINUED] omeprazole (PriLOSEC) [address] capsule take 1 capsule by mouth every morning 30 capsule 0 [DISCONTINUED] venlafaxine XR (Effexor XR) 75 MG 24 hr capsule take 1 capsule by mouth every morning (Patient taking differently: Take 75 mg by mouth every other day Weaning himself off) 30 capsule 0 No current facility-administered medications on file prior to visit. I have reviewed and reconciled the history and medication list with the patient today. Allergies Allergen Reactions Penicillin V Unknown Social History Tobacco Use Smoking status: Never Smokeless tobacco: Former Types: Chew Vaping Use Vaping status: Never Used Substance Use Topics Alcohol use: Yes Alcohol/week: 1.0 standard drink of alcohol Types: 1 Standard drinks or equivalent per week Drug use: Never Family History Problem Relation Name Age of Onset Anemia Mother Vitaminn B12 deficiency Diabetes Mother Nephrolithiasis Sister Diabetes Sister No Known Problems Son Past Medical History: Diagnosis Date Anxiety Diabetes mellitus (CMS/HCC) Elevated ALT measurement GERD (gastroesophageal reflux disease) History of seborrheic keratosis Hyperlipidemia (CMS/HCC) Past Surgical History: Procedure Laterality Date EYE SURGERY retina EYE SURGERY Right 2023 Lens replacement FEMUR SURGERY 1984 hip Visit Vitals BP 130/88 Pulse 83 Resp 16 Ht 5' 10 Wt 207 lb 9.6 oz SpO2 95% BMI 29.79 kg/m Smoking Status Never BSA 2.16 m Review of Systems Constitutional: Negative for chills, fatigue and fever. Respiratory: Negative for cough, shortness of breath and wheezing. Cardiovascular: Negative for chest pain, palpitations and leg swelling. Gastrointestinal: Negative for abdominal pain, constipation, diarrhea, nausea and vomiting. Genitourinary: Positive for frequency. Negative for dysuria. Skin: Negative for rash. Objective Physical Exam Constitutional: General: He is not in acute distress. Appearance: Normal appearance. HENT: Head: Normocephalic and atraumatic. Eyes: General: No scleral icterus. Cardiovascular: Rate and Rhythm: Normal rate and regular rhythm. Heart sounds: No murmur heard. Pulmonary: Effort: Pulmonary effort is normal. No respiratory distress. Breath sounds: Normal breath sounds. No wheezing, rhonchi or rales. Musculoskeletal: General: No swelling. Skin: General: Skin is warm and dry. Neurological: General: No focal deficit present. Mental Status: He is alert and oriented to person, place, and time. Psychiatric: Mood and Affect: Mood normal. Behavior: Behavior normal. Office Visit on 11/13/2023 Component Date Value Ref Range Status Color, UA 11/13/2023 Yellow Final Clarity, UA 11/13/2023 Clear Final Glucose, UA 11/13/2023 Negative Negative - 1999(110) ++++ mg/dL Final Bilirubin, UA 11/13/2023 Negative Negative - 4(70) +++ mg/dL Final Ketones, UA 11/13/2023 Negative Negative - 160(16) ++++ mg/dL Final Spec Grav, UA 11/13/2023 1.025 1 - 1.03 Final Blood, UA 11/13/2023 Negative Negative - 50 Get[place]w/mcL Final pH, UA 11/13/2023 5.0 5 - 9 Final Protein, UA 11/13/2023 Negative Negative - 1999(20) ++++ mg/dL Final Urobilinogen, UA 11/13/2023 0.2 0.2 - 12 mg/dL Final Leukocytes, UA 11/13/2023 Negative Negative - 500+++ Poly/mcL Final Nitrite, UA 11/13/2023 Negative Negative - Positive Final Hemoglobin A1C 11/13/2023 6.3 Final Assessment/Plan Diagnoses and all orders for this visit: DM (diabetes mellitus), type 2 with complications (CMS/HCC) - POCT glycosylated hemoglobin (Hb A1C) docked device Advised pt that his HgbA1c has improved from 7.0 to 6.3. Encouraged pt to continue with healthy diet. Continue to limit simple sugars and carbs. Doing very well with diet alone. Will recheck in 6 months. Urine frequency - POCT Urinalysis dipstick Reassurance given no glucose or infection seen in urine. Encouraged pt to increase his water intake. Follow up in about 6 months (around 05/14/2024) for Wellness, Diabetes. documented in this encounter [facility] Evaluation note Diagnosis DM (diabetes mellitus), type 2 with complications (CMS/HCC)- Primary Type II or unspecified type diabetes mellitus with unspecified complication, not stated as uncontrolled Urine frequency documented in this encounter [facility] HealthcareEvaluation note* Diagnosis Adult wellness visit- Primary Type 2 diabetes mellitus with other specified complication Mixed hyperlipidemia ([facility]) Mixed hyperlipidemia Urine test positive for microalbuminuria documented in this encounter [facility] HealthcareEvaluation noteNo assessment information availableOhiohealth [facility] Work Phone: Evaluation note* Diagnosis Adult wellness visit- Primary Type 2 diabetes mellitus with other specified complication Mixed hyperlipidemia ([facility]/HCC) Mixed hyperlipidemia Urine test positive for microalbuminuria Other chest pain- Primary Palpitations Gastroesophageal reflux disease without esophagitis Esophageal reflux Generalized anxiety disorder ([facility]) Generalized anxiety disorder documented in this encounter [facility] HealthcareHospital course Narrative No data available for this section [facility] Hospital Discharge instructions Additional Instructions Follow-up with your primary care doctor Return to ED for worsening symptoms or concernsOhio[facility] Work Phone: Progress note No data available for this section [facility] Summary Purpose Family History No Family History Records Found Relationship Condition Age at Onset Recorded Date/T doris mother Diabetes mellitus Unknown Advance Directives No Advanced Directives Records Found Advance Directive Response Recorded Date/ Time Advance Directives No July 13 1:14pm Chief Complaint and Reason for Visit Chief Complaint Admit Date Chest Tightness, Left side tingling Apri l 2024 7:54am Additional Source Comments (unrecognized sect ion and content) No Status Records FoundNo Status Records FoundNo Status Records FoundNo Status Records FoundNo Status Records Found INFORMATION SOURCE (unrecogn ized section and content) DATE CREATED AUTHOR 10/04/2018 [facility] DATE CREATED AUTHOR AUTHOR'S ORGANIZ ATION 05/12/2024 [facility] DATE CREATED AUTHOR AUTHOR'S ORGANIZ ATION 06/08/2024 [facility] DATE CREATED AUTHOR AUTHOR'S ORGANIZ ATION 06/30/2024 [facility] dical [facility] DATE CREATED AUTHOR AUTHOR'S ORGANIZ ATION 07/06/2024 [facility] Patient Care team informatio n (unrecognized section and content) Processing Rep Relationship Specialty Start Date End Date Helena Tim MD [address] [place] [address] PCP - General Family Medicine 07/17/22 Fran Montano MD [address] [place] [address] PCP - [place] [employer] 02/26/23 Processing Rep Relationship Specialty Start Date End Date Helena Tim MD [address] [place] [address] PCP - General Family Medicine 07/17/22 Fran Montano MD [address] [place] [address] PCP - [place] [employer] 02/26/23 Processing Rep Relationship Specialty Start Date End Date Helena Tim MD [address] [place] [address] PCP - General Family Medicine 07/17/22 Processing Rep Relationship Specialty Start Date End Date Helena Tim MD [address] [place] [address] PCP - General Family Medicine 07/17/22 Team Status: Active Member Role Status Dates Helena Tim MD Primary Care Provider Active Team Status: Inactive Member Role Status Dates Helena Tim MD Primary Care Provider Active S tart: June 19, 2024 End: June 19, 2024 Alvin Lay DO Emergency Provider Active Sta rt: June 19, 2024 End: June 19, 2024 Processing Rep Relationship Specialty Start Date End Date Helena Tim MD [address] [place] [address] PCP - General Family Medicine 07/17/22 Processing Rep Relationship Specialty Start Date End Date Helena Tim MD [address] [facility] [address] [place] [address] PCP - General Family Medicine 07/17/22 Reason for Visit (unrecogniz ed section and content) Reason Comments Annual Exam Goals (unrecognized section and content) Goals may be documented in a n alternate section FOR RECORDS PERTAINING TO PATIENTS WHO ARE OR HAVE BEEN ENROLLED IN A CHEMICAL DEPENDENCY/SUBSTANCEABUSE PROGRAM, SOME INFORMATION MAY BE OMITTED. This clinical summary was aggregated from multiple sources. Caution should be exercised in using it in the provision of clinical care. This summary normalizes information from multiple sources, and as a consequence, information in this document may materially change the coding, format and clinical context of patient data. In addition, data may be omitted in some cases. CLINICAL DECISIONS SHOULD BE BASED ON THE PRIMARY CLINICAL RECORDS. [email or web address] [facility]. provides no warranty or guarantee of the accuracy or completeness of information in this document.
--- NOTE | 2024-07-15 10:08 | PC.NURSE ---
Nursing Note Cardiac Stress Test Reviewed: Medication, allergies and patient history reviewed. Stress Test: [x ] Patient tolerated stress test well. [ ] Patient unable to tolerate walking on treadmill. Switched to Lexiscan stress test. [x ] No chest pain noted per patient [ ] Chest pain that resolved prior to leaving stress lab. [ ] No dyspnea noted. [ x] Dyspnea that resolved prior to leaving stress lab. [ x] Patient left stress lab asymptomatic and hemodynamically stable. [ ] Patient taken to the Emergency Room due to non-resolving symptoms following stress test. [ ] Patient achieved target heart rate. [ ] Patient unable to achieve target heart rate. [ ] Aminophylline administered as reversal agent to Lexiscan (Regadenoson). [ ] Nitro administered. Nursing Comments:Pt had regular TM stress test done. Tolerated well. Pt met target HR. No symptoms reported other then SOB and leg fatigue which pt states is normal for him with activity. Pt recovered within 3 minutes of rest after test.
--- NOTE | 2024-07-17 12:29 | PM.STRESS ---
Stress Test Stress Test Allergies Allergy/AdvReac Type Severity Reaction Status Date / Time penicillamine Allergy Mild Unknown Verified 11/29/23 09:40 Requesting physician: TOSHA GUAJARDO Procedure: Treadmill exercise stress test General Information: Reason for Stress Test: [Chest pain] Cardiac History and Risk Factors: [Diabetes] Resting 12 - Lead Electrocardiogram: Normal sinus rhythm Normal ECG Stress Test: Protocol: [Nitesh protocol] Exercise Capacity: [Average] Blood Pressure Response: [Normal resting blood pressure appropriate response] Rhythm: [Sinus, no significant arrhythmias] ST - Response: [No significant ST-T wave abnormalities] Patient Response: [No chest pain] The patient's resting heart rate was 69 bpm increasing to a maximum of 150 bpm which is 87% of maximal predicted heart rate. Resting blood pressure was 128/80 with a peak blood pressure of 142/82. The patient exercised for 9 minutes and 24 seconds reaching stage IV of the Nitesh protocol. Maximum METS achieved was 11.42 Interpretation: 1. No ischemic EKG changes seen on routine treadmill stress test. 2. Appropriate heart rate and blood pressure response to exercise. 3. Benitez treadmill score is 9.2. Estimated 1 year mortality: 0.3 to 0.9%. Risk category: Low risk. Angiography: Usually not indicated.
== END 2024-07-15 07:26 | disposition home or self-care (01) ==
LOC: CARD 07:25
PROVIDERS: PCP Physician Assistant; Visit Provider Physician Assistant
DX: R07.89 Other chest pain (principal); R00.2 Palpitations
CPT/HCPCS: 93017; 93246

== ENCOUNTER 2024-09-19 20:04 | Emergency (ER) | payer BC, SELFPAY ==
[2024-09-19 20:09] VITALS: BP 125/83; PULSE 78; TEMP 36.6; O2SAT 98; BMI 26.5
--- OUTSIDE RECORDS SUMMARY | 2024-09-19 20:18 | XMS_ITS | CCD ---
Author Organization [facility] Care Team Providers Care Pharmacist Hospital Name Role Phone JESSICA GUAJARDO Admitting Unavailable JESSICA GUAJARDO Attending Unavailable HELENA TIM Primary Care Unavailable CED JULES Consulting Unavailable JESSICA GUAJARDO Consulting Unavailable HELENA TIM Primary Care Physician Helena Tim MD Primary Care Provider Fran Montano MD Unavailable [phone] Damon WOLFE Attending Unavailable Leta Elizalde Attending Unavailable Leta Elizalde Attending Unavailable Helena Tim MD Primary Care Provider Alvin Lay DO Emergency Provider [phone] Alvin Lay Attending Unavailable Alvin Lay Admitting Unavailable Helena Tim Primary Care Unavailable HELENA TIM Attending Unavailable JESSICA GUAJARDO Attending Unavailable ESSENCE THOMPSON Attending Unavailable HELENA TIM Referring Unavailable JESSICA GUAJARDO Attending Unavailable Allergies Allergy Classification Reported Allergen(s) Allergy Type Date of Onset Reaction(s) Facility (1 source) Penicillin Drug Allergy [facility] Repository (3 sources) Penicillins; Translations: [penicillins] Drug allergy 06-19-2024 [facility] (12 sources) Penicillin V Drug Allergy 07-14-2022 Unknown [facility] Work Phone: Medications Current Medications Medication Drug Class(es) Dates Sig (Normalized) Sig (Original) busPIRone hydrochloride 10 mg oral tablet (5 sources) Start: 06-25-2024 take 1 tablet by mouth twice daily as needed for anxiety busPIRone (Buspar) 10 MG tablet Indications: Generalized anxiety disorder Take 1 tablet (10 mg) by mouth 2 (two) times a day as needed (Anxiety) 60 tablet 06/25/2024 Active Multivitamin preparation (1 source) Start: 12-20-2023 multivitamin Refill(s) 0 Start Date: 12/20/23 Status: Ordered [place] (No Known Home Meds) (1 source) Start: 06-19-2024 [place] (No Known Home Meds) Active June 19, 2024 12:00am Saw palmetto extract (1 source) Start: 12-20-2023 saw palmetto See Instructions, Refill(s) 0, Oral Start Date: 12/20/23 Status: Ordered Completed/Discontinued Medications Medication Drug Class(es) Dates Sig (Normalized) Sig (Original) omeprazole 20 mg delayed release oral capsule (9 sources) Proton Pump Inhibitor Start: 02-12-2023 End: [...] Problem Classification Problem Date Documented Date Episodic/Chronic Administrative/socia l admission (2 sources) Patient encounter status; Translations: [Dietary counseling and surveillance] 08-13-2024 Episodic Anxiety disorders (14 sources) Generalized anxiety disorder; Translations: [Generalized anxiety [...] Onset: 12-20-2023 Chronic Disorders of lipid metabolism (14 sources) Mixed hyperlipidemia; Translations: [Mixed hyperlipidemia] Onset: 07-14-2022 07-14-2022 Chronic Esophageal disorders (14 sources) Gastroesophageal reflux disease without esophagitis; Translations: [Gastro-esophageal reflux disease without esophagitis] Onset: 07-14-2022 07-14-2022 Chronic Genitourinary symptoms and ill-defined conditions (13 sources) Increased frequency of urination; Translations: [Frequency of micturition] Onset: 12-20-2023 Episodic Nonspecific chest pain (8 sources) Tight chest; Translations: [Other chest pain] Onset: 06-19-2024 06-19-2024 Episodic Nutritional deficiencies (2 sources) Vitamin D deficiency; Translations: [Vitamin D deficiency, unspecified] 08-13-2024 Chronic Other nervous system disorders (2 sources) Tremor; Translations: [Tremor, unspecified] 08-13-2024 Episodic Other screening for suspected conditions (not [...] Da te Episodic/Chronic Diabetes mellitus without complication (12 sources) Impaired fasting glycemia; Translations: [Impaired fasting glucose] Onset: 07-14-2022 Resolved: 08-16-2022 08-16-2022 Episodic Other connective tissue disease (12 sources) Muscle pain; Translations: [Myalgia, unspecified site] Onset: 03-30-2023 03-30-2023 Episodic Other liver diseases (12 sources) ALT (SGPT) level raised; Translations: [Elevated ALT measurement] Onset: 07-14-2022 07-14-2022 Episodic Other nervous system disorders (12 sources) Disorder of muscle; Translations: [Myopathy, unspecified] Onset: 03-30-2023 Resolved: 05-15-2023 05-15-2023 Chronic Other nutritional; endocrine; and metabolic disorders (12 sources) Overweight; Translations: [Overweight] Onset: 07-14-2022 07-14-2022 Episodic Substance-related disorders (12 sources) Nicotine dependence; Translations: [Nicotine dependence, chewing tobacco, uncomplicated] Onset: 07-14-2022 Resolved: 05-15-2023 05-15-2023 Chronic Syncope (12 sources) Syncope; Translations: [Syncope and collapse] Onset: 11-13-2023 11-13-2023 Episodic Comment on above: Problem List clean-u p per request of Phys. EHR Cmte Results Test Name Value Interpretation Reference Range Facility Glucose (Bld) [Mass/Vol]Orde red By: Avelina Rivers on 08-13-2024 Glucose Blood, POC 126 mg/dL [facility] - Hematology and Cell countson 08-13-2024 HbA1c (Bld) [Mass fraction] 5.9 % [facility] No Panel InformationOrdered By: Avelina Rivers on 08-13-2024 [facility] Alanine aminotransferase [En zymatic activity/volume] in Serum or PlasmaOrdered By: Alvin Lay on 06-19-2024 ALT [Catalytic activity/Vol] Alanine aminotransferase [Enzymatic activity/volume] in Serum or Plasma 7-52 [facility] Albumin [Mass/volume] in Ser um or Plasma by Bromocresol green (BCG) dye binding methoOrdered By: Alvin Lay on 06-19-2024 Albumin BCG dye [Mass/Vol] Albumin [Mass/volume] in Serum or Plasma by Bromocresol green (BCG) dye binding metho 3.5-5.7 [facility] Alkaline phosphatase [Enzyma tic activity/volume] in Serum or PlasmaOrdered By: Alvin Lay on 06-19-2024 ALP [Catalytic activity/Vol] Alkaline phosphatase [Enzymatic activity/volume] in Serum or Plasma 34-104 [facility] Aspartate aminotransferase [ Enzymatic activity/volume] in Serum or PlasmaOrdered By: Alvin Lay on 06-19-2024 AST [Catalytic activity/Vol] Aspartate aminotransferase [Enzymatic activity/volume] in Serum or Plasma 13-39 [facility] B-Type Natriuretic Peptideon 06-19-2024 Natriuretic peptide B (Bld) [Mass/Vol] 10.0 pg/mL Normal 5-100 [facility] Comment on above: Result Comment: PERF ORMED BY: [place] [address] PATHOLOGIST [employer] YUSRA BE M.D. Performed By: #### P T, HEPATIC, HS TROP, BMP, CBC, BNP, CK #### [facility] [address] [place] [address] Basic Metabolic Panelon 05-28 Anion gap [Moles/Vol] 12.4 mmol/L Normal 6.0-15.0 [facility] Comment on above: Performed By: #### P T, HEPATIC, HS TROP, BMP, CBC, BNP, CK #### [address] Calcium [Mass/Vol] 9.7 mg/dL Normal 8.6-10.3 [facility] Comment on above: Performed By: #### P T, HEPATIC, HS TROP, BMP, CBC, BNP, CK #### [address] Chloride [Moles/Vol] 104 mmol/L Normal 98-107 [facility] Comment on above: Performed By: #### P T, HEPATIC, HS TROP, BMP, CBC, BNP, CK #### [address] CO2 [Moles/Vol] 23.5 mmol/L Normal 21.0-31.0 [facility] Comment on above: Performed By: #### P T, HEPATIC, HS TROP, BMP, CBC, BNP, CK #### [address] Creatinine [Mass/Vol] 0.98 mg/dL Normal 0.70-1.30 [facility] Comment on above: Performed By: #### P T, HEPATIC, HS TROP, BMP, CBC, BNP, CK #### [address] Creatinine Clr Calc Pharmacy 105.09 Normal [facility] Comment on above: Result Comment: PERF ORMED BY: [place] [address] PATHOLOGIST [employer]RA BE M.D. Performed By: #### P T, HEPATIC, HS TROP, BMP, CBC, BNP, CK #### [address] GFR/1.73 sq M.predicted MDRD (S/P/Bld) [Vol rate/Area] mL/min/{1.73_m2} Normal [facility] Comment on above: Performed By: #### P T, HEPATIC, HS TROP, BMP, CBC, BNP, CK #### [address] Glucose [Mass/Vol] 104 mg/dL High 70-100 [facility] Comment on above: Result Comment: [place] Glucose Reference Range is dependent on time and content of last meal. Glucose of more than 200 mg/dL in a nonstressed, ambulatory subject supports the diagnosis of Diabetes Mellitus. ADA recommended reference range Performed By: #### P T, HEPATIC, HS TROP, BMP, CBC, BNP, CK #### [facility] [address] Potassium [Moles/Vol] 3.9 mmol/L Normal 3.5-5.1 [facility] Comment on above: Performed By: #### P T, HEPATIC, HS TROP, BMP, CBC, BNP, CK #### [facility] [address] Sodium [Moles/Vol] 136 mmol/L Normal 136-145 [facility] Comment on above: Performed By: #### P T, HEPATIC, HS TROP, BMP, CBC, BNP, CK #### [facility] [address] Urea nitrogen [Mass/Vol] 21 mg/dL Normal 7-25 [facility] Comment on above: Performed By: #### P T, HEPATIC, HS TROP, BMP, CBC, BNP, CK #### [address] Basophils Auto (Bld) [#/Vol] Ordered By: Alvin Lay on 06-19-2024 Basophils (Bld) [#/Vol] Automated basophil count 0.0-0.2 [facility] Basophils/100 WBC Auto (Bld) Ordered By: Alvin Lay on 06-19-2024 Basophils/100 WBC (Bld) Automated basophil % . [facility] Bilirubin.direct [Mass/volum e] in Serum or PlasmaOrdered By: Alvin Lay on 06-19-2024 Bilirubin.direct [Mass/Vol] Bilirubin.direct [Mass/volume] in Serum or Plasma 0.03-0.18 [facility] Bilirubin.total [Mass/volume ] in Serum or PlasmaOrdered By: Alvin Lay on 06-19-2024 Bilirubin [Mass/Vol] Bilirubin.total [Mass/volume] in Serum or Plasma 0.3-1.0 [facility] Calcium [Mass/volume] in Ser um or PlasmaOrdered By: Alvin Lay on 04-24-2025 Calcium [Mass/Vol] Calcium [Mass/volume ] in Serum or Plasma 8.6-10.3 [facility] Carbon dioxide, total [Moles /volume] in Serum or PlasmaOrdered By: Alvin Lay on 06-19-2024 CO2 [Moles/Vol] Carbon dioxide, tota l [Moles/volume] in Serum or Plasma 21.0-31.0 [facility] Chloride [Moles/volume] in S beata or PlasmaOrdered By: Alvin Lay on 06-19-2024 Chloride [Moles/Vol] Chloride [Moles/vol ume] in Serum or Plasma 98-107 [facility] Complete Blood Count Auto Di ffon 06-19-2024 Basophils (Bld) [#/Vol] 0.1 10*3/uL Normal 0.0-0.2 [facility] Comment on above: Result Comment: PERF ORMED BY: [place] [address] PATHOLOGIST [employer]RA BE M.D. Performed By: #### P T, HEPATIC, HS TROP, BMP, CBC, BNP, CK #### [address] Basophils/100 WBC (Bld) 1.0 % Normal . [facility] Comment on above: Performed By: #### P T, HEPATIC, HS TROP, BMP, CBC, BNP, CK #### [address] Eosinophils (Bld) [#/Vol] 0.1 10*3/uL Normal 0.0-0.45 [facility] Comment on above: Performed By: #### P T, HEPATIC, HS TROP, BMP, CBC, BNP, CK #### [address] Eosinophils/100 WBC (Bld) 1.7 % Normal . [facility] Comment on above: Performed By: #### P T, HEPATIC, HS TROP, BMP, CBC, BNP, CK #### [address] Erythrocyte distribution width (RBC) [Ratio] 12.7 % Normal 12.0-14.8 [facility] Comment on above: Performed By: #### P T, HEPATIC, HS TROP, BMP, CBC, BNP, CK #### [address] Hematocrit (Bld) [Volume fraction] 42.5 % Normal 38.8-50.0 [facility] Comment on above: Performed By: #### P T, HEPATIC, HS TROP, BMP, CBC, BNP, CK #### [address] Hemoglobin (Bld) [Mass/Vol] 15.1 g/dL Normal 13.0-17.0 [facility] Comment on above: Performed By: #### P T, HEPATIC, HS TROP, BMP, CBC, BNP, CK #### [address] Lymphocytes (Bld) [#/Vol] 1.6 10*3/uL Normal 1.00-4.8 [facility] Comment on above: Performed By: #### P T, HEPATIC, HS TROP, BMP, CBC, BNP, CK #### [address] Lymphocytes/100 WBC (Bld) 27.3 % Normal . [facility] Comment on above: Performed By: #### P T, HEPATIC, HS TROP, BMP, CBC, BNP, CK #### [address] MCH (RBC) [Entitic mass] 31.5 pg Normal 27.5-35.2 [facility] Comment on above: Performed By: #### P T, HEPATIC, HS TROP, BMP, CBC, BNP, CK #### [address] MCV (RBC) [Entitic vol] 88.7 fL Normal 83.5-101 [facility] Comment on above: Performed By: #### P T, HEPATIC, HS TROP, BMP, CBC, BNP, CK #### [address] Mean Corpuscular HGB Conc 35.5 g/dL Normal 32.5-35.6 [facility] Comment on above: Performed By: #### P T, HEPATIC, HS TROP, BMP, CBC, BNP, CK #### [address] Monocytes (Bld) [#/Vol] 0.6 10*3/uL Normal 0.0-0.8 [facility] Comment on above: Performed By: #### P T, HEPATIC, HS TROP, BMP, CBC, BNP, CK #### [address] Monocytes/100 WBC (Bld) 15.53 % Normal 0.00-20.00 [facility] Comment on above: Performed By: #### P T, HEPATIC, HS TROP, BMP, CBC, BNP, CK #### [address] Monocytes/100 WBC (Bld) 10.4 % Normal . [facility] Comment on above: Performed By: #### P T, HEPATIC, HS TROP, BMP, CBC, BNP, CK #### [address] Neutrophils (Bld) [#/Vol] 3.6 10*3/uL Normal 1.8-7.7 [facility] Comment on above: Performed By: #### P T, HEPATIC, HS TROP, BMP, CBC, BNP, CK #### [address] Neutrophils/100 WBC (Bld) 59.6 % Normal . [facility] Comment on above: Performed By: #### P T, HEPATIC, HS TROP, BMP, CBC, BNP, CK #### [address] NRBC% 0.1 /100{WBC} Normal 0-0.5 [facility] Comment on above: Performed By: #### P T, HEPATIC, HS TROP, BMP, CBC, BNP, CK #### [place] [address] [place] Platelet mean volume (Bld) [Entitic vol] 8.2 fL Normal 6.6-10.1 [facility] Comment on above: Performed By: #### P T, HEPATIC, HS TROP, BMP, CBC, BNP, CK #### [facility] [address] Platelets (Bld) [#/Vol] 223 10*3/uL Normal 150-450 [facility] Comment on above: Performed By: #### P T, HEPATIC, HS TROP, BMP, CBC, BNP, CK #### [address] RBC (Bld) [#/Vol] 4.79 10*6/uL Normal 3.90-5.60 [facility] Comment on above: Performed By: #### P T, HEPATIC, HS TROP, BMP, CBC, BNP, CK #### [address] WBC (Bld) [#/Vol] 6.0 10*3/uL Normal 4.1-10.5 [facility] Comment on above: Performed By: #### P T, HEPATIC, HS TROP, BMP, CBC, BNP, CK #### [address] Creatine Kinaseon 06-19-2024 CK [Catalytic activity/Vol] 229 U/L High [facility] Comment on above: Performed By: #### P T, HEPATIC, HS TROP, BMP, CBC, BNP, CK #### [address] Creatine kinase [Enzymatic a ctivity/volume] in Serum or PlasmaOrdered By: Alvin Lay on 06-19-2024 CK [Catalytic activity/Vol] Creatine kinase [Enzymatic activity/volume] in Serum or Plasma High [facility] Creatinine [Mass/volume] in Serum or PlasmaOrdered By: Alvin Lay on 06-19-2024 Creatinine [Mass/Vol] Creatinine [Mass/v olume] in Serum or Plasma 0.70-1.30 [facility] ECG 12 lead ECGon 06-19-2024 ECG 12 lead ECG [facility] [address] Electrocardiograph Report Signed Patient: Tim Proctor MR#: [id number] : 1975 Acct:[id number] Age/Sex: 48 / M ADM Date: 06/19/24 Loc: ER Room: Type: [facility] ER Attending Dr: Ordering Provider: Alvin Lay [...] was found Confirmed by Alvin Lay DO ([id number]) on 06/19/2024 10:40:01 AM Referred By: Electronically Signed By: Alvin Lay DO Transcribed By: MUS Signed By Alvin Lay DO 5 1040 Normal [facility] Eosinophils Auto (Bld) [#/Vo l]Ordered By: Alvin Lay on 06-19-2024 Eosinophils (Bld) [#/Vol] Automated eosinophil count 0.0-0.45 [facility] Eosinophils/100 WBC Auto (Bl d)Ordered By: Alvin Lay on 06-19-2024 Eosinophils/100 WBC (Bld) Automated eosinophil % . [facility] Erythrocyte distribution wid th Auto (RBC) [Ratio]Ordered By: Alvin Lay on 06-19-2024 Erythrocyte distribution width (RBC) [Ratio] Erythrocyte distribution width [Ratio] by Automated count 12.0-14.8 [facility] Globulin Calc (S) [Mass/Vol] Ordered By: Alvin Lay on 06-19-2024 Globulin (S) [Mass/Vol] Serum globulin measurement by calculation (mass/volume) [facility] Glucose [Mass/volume] in Ser um or PlasmaOrdered By: Alvin Lay on 06-19-2024 Glucose [Mass/Vol] Glucose [Mass/volume ] in Serum or Plasma High 70-100 [facility] Comment on above: ADA [...] Fraction] of Blood by Automated count 38.8-50.0 [facility] Hemoglobin [Mass/volume] in BloodOrdered By: Alvin Lay on 06-19-2024 Hemoglobin (Bld) [Mass/Vol] Hemoglobin [Mass/volume] in Blood 13.0-17.0 [facility] Hepatic Panelon 06-19-2024 Albumin [Mass/Vol] 4.8 g/dL Normal 3.5-5.7 [facility] Comment on above: Performed By: #### P T, HEPATIC, HS TROP, BMP, CBC, BNP, CK #### [facility] [address] [place] [address] [place] Albumin/Globulin [Mass ratio] 1.9 {ratio} Normal [facility] Comment on above: Performed By: #### P T, HEPATIC, HS TROP, BMP, CBC, BNP, CK #### [facility] [address] [place] [id number] [place] ALP [Catalytic activity/Vol] 68 U/L Normal 34-104 [facility] Comment on above: Performed By: #### P T, HEPATIC, HS TROP, BMP, CBC, BNP, CK #### [facility] [address] [place] [id number] [place] ALT [Catalytic activity/Vol] 33 U/L Normal 7-52 [facility] Comment on above: Performed By: #### P T, HEPATIC, HS TROP, BMP, CBC, BNP, CK #### [facility] [address] [place] [id number] [place] AST [Catalytic activity/Vol] 29 U/L Normal 13-39 [facility] Comment on above: Performed By: #### P T, HEPATIC, HS TROP, BMP, CBC, BNP, CK #### [address] Bilirubin [Mass/Vol] 0.6 mg/dL Normal 0.3-1.0 [facility] Comment on above: Performed By: #### P T, HEPATIC, HS TROP, BMP, CBC, BNP, CK #### [address] Bilirubin,Indirect 0.5 mg/dL Normal [facility] Comment on above: Performed By: #### P T, HEPATIC, HS TROP, BMP, CBC, BNP, CK #### [address] Bilirubin.indirect [Mass/Vol] 0.10 mg/dL Normal 0.03-0.18 [facility] Comment on above: Performed By: #### P T, HEPATIC, HS TROP, BMP, CBC, BNP, CK #### [address] Globulin (S) [Mass/Vol] 2.5 g/dL Normal [facility] Comment on above: Performed By: #### P T, HEPATIC, HS TROP, BMP, CBC, BNP, CK #### [address] Protein [Mass/Vol] 7.3 g/dL Normal 6.4-8.9 [facility] Comment on above: Performed By: #### P T, HEPATIC, HS TROP, BMP, CBC, BNP, CK #### [address] INR in Platelet poor plasma by Coagulation assayOrdered By: Alvin Lay on 06-19-2024 INR Coag (PPP) [Relative time] INR in Platelet poor plasma by Coagulation assay [facility] Comment on above: INR [...] erythrocytes in Blood by Automated coun 4.1-10.5 [facility] Lymphocytes Auto (Bld) [#/Vo l]Ordered By: Alvin Lay on 06-19-2024 Lymphocytes (Bld) [#/Vol] Lymphocytes [#/volume] in Blood by Automated count 1.00-4.8 [facility] Lymphocytes/100 WBC Auto (Bl d)Ordered By: Alvin Lay on 06-19-2024 Lymphocytes/100 WBC (Bld) Lymphocytes/100 leukocytes in Blood by Automated count . [facility] MCH Auto (RBC) [Entitic mass ]Ordered By: Alvin Lay on 06-19-2024 MCH (RBC) [Entitic mass] MCH [Entitic mass] by Automated count 27.5-35.2 [facility] MCHC Auto (RBC) [Mass/Vol]Or dered By: Alvin Lay on 06-19-2024 MCHC (RBC) [Mass/Vol] MCHC [Mass/volume] by Automated count 32.5-35.6 [facility] MCV Auto (RBC) [Entitic vol] Ordered By: Alvin Lay on 06-19-2024 MCV (RBC) [Entitic vol] MCV [Entitic volume] by Automated count 83.5-101 [facility] Monocyte distribution width [Entitic volume] in Blood by AutomatedOrdered By: Alvin Lay on 06-19-2024 Monocyte distribution width Auto (Bld) [Entitic vol] Monocyte distribution width [Entitic volume] in Blood by Automated 0.00-20.00 [facility] Monocytes Auto (Bld) [#/Vol] Ordered By: Alvin Lay on 06-19-2024 Monocytes (Bld) [#/Vol] Automated blood monocyte count 0.0-0.8 [facility] Monocytes/100 WBC Auto (Bld) Ordered By: Alvin Lay on 06-19-2024 Monocytes/100 WBC (Bld) Automated monocyte % . [facility] Natriuretic peptide B [Mass/ Vol]Ordered By: Alvin Lay on 06-19-2024 Natriuretic peptide B (Bld) [Mass/Vol] BNP ser/plas 5-100 [facility] Neutrophils Auto (Bld) [#/Vo l]Ordered By: Alvin Lay on 06-19-2024 Neutrophils (Bld) [#/Vol] Neutrophils [#/volume] in Blood by Automated count 1.8-7.7 [facility] Neutrophils/100 WBC Auto (Bl d)Ordered By: Alvin Lay on 06-19-2024 Neutrophils/100 WBC (Bld) Automated neutrophil % . [facility] No Panel InformationOrdered By: Alvin Lay on 06-19-2024 Estimated GFR (CKD-EPI) > 60.0 mL/Min [facility] Creatinine Clearance (Chem 105.09 [facility] Nucleated erythrocytes [Pres ence] in Blood by Automated countOrdered By: Alvin Lay on 06-19-2024 Nucleated RBC Auto Ql (Bld) Nucleated erythrocytes [Presence] in Blood by Automated count 0-0.5 [facility] Platelet mean volume Auto (B ld) [Entitic vol]Ordered By: Alvin Lay on 06-19-2024 Platelet mean volume (Bld) [Entitic vol] Platelet mean volume [Entitic volume] in Blood by Automated count 6.6-10.1 [facility] Platelets Auto (Bld) [#/Vol] Ordered By: Alvin Lay on 06-19-2024 Platelets (Bld) [#/Vol] Platelets [#/volume] in Blood by Automated count 150-450 [facility] Potassium [Moles/volume] in Serum or PlasmaOrdered By: Alvin Lay on 06-19-2024 Potassium [Moles/Vol] Potassium [Moles/v olume] in Serum or Plasma 3.5-5.1 [facility] Protein [Mass/volume] in Ser um or PlasmaOrdered By: Alvin Lay on 06-19-2024 Protein [Mass/Vol] Protein [Mass/volume ] in Serum or Plasma 6.4-8.9 [facility] Prothrombin Time INRon 06-19 INR Coag (PPP) [Relative time] 0.9 {INR} Normal [facility] Comment on above: Result Comment: [...] heart valves: 3 - 4.5 PERFORMED BY: [place] [address] PATHOLOGIST [employer] YUSRA BE M.D. Performed By: #### P T, HEPATIC, HS TROP, BMP, CBC, BNP, CK #### [address] PT Coag (PPP) [Time] 10.8 s Normal 9.0-12.9 [facility] Comment on above: Result Comment: A he matocrit value greater than 55% may lead to inaccurate results in coagulation testing. Patients having hematocrit values >55% require a special collection tube for coagulation studies. Please contact the laboratory at [phone] for redraw instructions. Performed By: #### P T, HEPATIC, HS TROP, BMP, CBC, BNP, CK #### [place] [id number] [facility] Prothrombin time (PT)Ordered By: Alvin Lay on 06-19-2024 PT Coag (PPP) [Time] Prothrombin time (PT) 9.0- 12.9 [facility] [facility] Comment on above: A hematocrit value g reater than 55% may lead to inaccurate results in coagulation testing. Patients having hematocrit values >55% require a special collection tube for coagulation studies. Please contact the laboratory at [phone] for redraw instructions. RBC Auto (Bld) [#/Vol]Ordere d By: Alvin Lay on 06-19-2024 RBC (Bld) [#/Vol] Erythrocytes [#/volu me] in Blood by Automated count 3.90-5.60 [facility] Serum or plasma albumin/glob ulin mass ratioOrdered By: Alvin Lay on 06-19-2024 Albumin/Globulin [Mass ratio] Serum or plasma albumin/globulin mass ratio [facility] Serum or plasma anion gap de terminationOrdered By: Alvin Lay on 06-19-2024 Anion gap [Moles/Vol] Serum or plasma an ion gap determination 6.0-15.0 [facility] Serum or plasma non-glucuron idated bilirubin measurement (mass/volume)Ordered By: Alvin Lay on 06-19-2024 Bilirubin.indirect [Mass/Vol] Serum or plasma non-glucuronidated bilirubin measurement (mass/volume) [facility] Sodium [Moles/volume] in Ser um or PlasmaOrdered By: Alvin Lay on 06-19-2024 Sodium [Moles/Vol] Sodium [Moles/volume ] in Serum or Plasma 136-145 [facility] Troponin I High Sensitivityo n 06-19-2024 Troponin I High Sensitivity 4 Normal 0-20 [facility] Comment on above: Result Comment: The Troponin units of report have been changed to meet the Chest Pain Accreditation requirement, element EC5.M1l2. Troponin units are changed from pg/ml to ng/L. Also, the decimal is removed and results are in whole numbers. PERFORMED BY: [place] [address] PATHOLOGIST [employer] YUSRA BE M.D. Performed By: #### H S TROP #### [address] Troponin I High Sensitivity 5 Normal 0-20 [facility] Comment on above: Result Comment: The Troponin units of report have been changed to meet the Chest Pain Accreditation requirement, element EC5.M1l2. Troponin units are changed from pg/ml to ng/L. Also, the decimal is removed and results are in whole numbers. PERFORMED BY: [place] [address] PATHOLOGIST [employer] YUSRA BE M.D. Performed By: #### P T, HEPATIC, HS TROP, BMP, CBC, BNP, CK #### [address] Troponin I.cardiac [Mass/vol ume] in Serum or Plasma by Detection limit <= 0.01 ng/Ordered By: Alvin Lay on 06-19-2024 Troponin I.cardiac DL <= 0.01 ng/mL [Mass/Vol] Troponin I.cardiac [Mass/volume] in Serum or Plasma by Detection limit <= 0.01 ng/ 0-20 [facility] Comment on above: The [...] Urea nitrogen [Mass/volume] in Serum or Plasma 7 [facility] WBC Auto (Bld) [#/Vol]Ordere d By: Alvin Lay on 06-19-2024 WBC (Bld) [#/Vol] Leukocytes [#/volume ] in Blood by Automated count 4.1-10.5 [facility] X-ray reportOrdered By: Aurelio Tavera on 06-19-2024 Study report [facility] [address] XRay Report Signed Patient: Tim Proctor MR #: [id number] : 1975 Acct:[id number] Age/Sex: 48 / M ADM Date: 5 Loc: ER Room: Type: [facility] ER Attending Dr: Copies to: Alvin Lay DO~ Ordering Provider: Alvin Lay DO Date of Service: 06/19/24 XR/XR chest 1V portable: CHEST PAIN SINGLE VIEW CHEST CLINICAL HISTORY: Shortness breath, chest tightness COMPARISON: 07/13/2022 FINDINGS: Unremarkable cardiomediastinal. Lungs clear. No effusion or pneumothorax. XR/XR chest 1V portable IMPRESSION: NO ACUTE FINDINGS Impression dictated by: Jorge Tavera M.D.06/19/2024 8:39 AM Dictation Location: RADIO-PC-23 Transcribed By: HUDSON 06/19/2439 Dictated By: Jorge Tavera MD 06/19/2435 Signed By: 06/19/24 0839 [facility] Work Phone: XR chest 1V portableon 06-19 XR chest 1V portable [facility] [place] [address] XRay Report Signed Patient: Tim Proctor MR#: [id number] : 1975 Acct:[id number] Age/Sex: 48 / M ADM Date: 06/19/24 Loc: ER Room: Type: [facility] ER Attending Dr: Copies to: Alvin Lay DO Ordering Provider: Alvin Lay DO Date of Service: 06/19/24 XR/XR chest 1V portable: CHEST PAIN SINGLE VIEW CHEST CLINICAL HISTORY: Shortness breath, chest tightness COMPARISON: 07/13/2022 FINDINGS: Unremarkable cardiomediastinal. Lungs clear. No effusion or pneumothorax. XR/XR chest 1V portable IMPRESSION: NO ACUTE FINDINGS Impression dictated by: Jorge Tavera M.D.06/19/2024 8:39 AM Dictation Location: RADIO-PC-23 Transcribed By: HUDSON 06/19/24 0839 Dictated By: Jorge Tavera MD 06/19/2435 Signed By: 06/19/24 0839 Normal [facility] ALBUMIN, RANDOM URINE W/CREA Leon 06-07-2024 ALBUMIN, URINE 0.4 mg/dL Normal See Note: [facility] Comment on above: Result Comment: Refe rence Range: Reference Range Not established Performed By: #### 6 399, 496, 31571, 1830, 6517 #### [facility] [address], [address] [place] [phone] [employer]: Yony Bo MD ALBUMIN/CREATININE RATIO, RANDOM URINE [...] category. Performed By: #### 6 399, 496, 26550, 7600, 6517 #### [facility] [place] [address] Manager [employer]: Yony Bo MD Creatinine (U) [Mass/Vol] 148 mg/dL Normal 20-320 [facility] Comment on above: Performed By: #### 6 399, 496, 63254, 7600, 6517 #### [facility] [place] [address] Manager [employer] Security: Yony Bo MD CBC (INCLUDES DIFF/PLT)on Basophils (Bld) [#/Vol] 0.062 10*3/uL Normal 0-200 [facility] Comment on above: Performed By: #### 6 399, 496, 48642, 7600, 6517 #### [facility] [place] [address] Manager [employer]: Yony Bo MD Basophils/100 WBC (Bld) 0.9 % Normal [facility] Comment on above: Performed By: #### 6 399, 496, 69705, 7600, 6517 #### [facility] [place] [address] Manager [employer] Security: Yony Bo MD Eosinophils (Bld) [#/Vol] 0.11 10*3/uL Normal 15-500 [facility] Comment on above: Performed By: #### 6 399, 496, 29542, 7600, 6517 #### [facility] [place] [address] Manager [employer]: Yony Bo MD Eosinophils/100 WBC (Bld) 1.6 % Normal [facility] Comment on above: Performed By: #### 6 399, 496, 58312, 7600, 6517 #### [facility] of [place] [address] Manager [employer]: Ynoy Bo MD Erythrocyte distribution width (RBC) [Ratio] 12.1 % Normal 11.0-15.0 [facility] Comment on above: Performed By: #### 6 399, 496, 81650, 7600, 6517 #### [facility] of [place] [address] Manager [employer]: Yony Bo MD Hematocrit (Bld) [Volume fraction] 48.7 % Normal 38.5-50.0 [facility] Comment on above: Performed By: #### 6 399, 496, 92110, 7600, 6517 #### [facility] [place] [address] Manager [employer]: Yony Bo MD Hemoglobin (Bld) [Mass/Vol] 16.3 g/dL Normal 13.2-17.1 [facility] Comment on above: Performed By: #### 6 399, 496, 67213, 7600, 6517 #### [facility] of [place] [address] Manager [employer]: Yony Bo MD Lymphocytes (Bld) [#/Vol] 1.697 10*3/uL Normal 850-3900 [facility] Comment on above: Performed By: #### 6 399, 496, 09737, 7600, 6517 #### [facility] [place] [address] Manager [employer]: Yony Bo MD Lymphocytes/100 WBC (Bld) 24.6 % Normal [facility] Comment on above: Performed By: #### 6 399, 496, 00200, 7600, 6517 #### [facility] [place] [address] Manager [employer]: Yony Bo MD MCH (RBC) [Entitic mass] 31.4 pg Normal 27.0-33.0 [facility] Comment on above: Performed By: #### 6 399, 496, 45226, 7600, 6517 #### [facility] [place] [address] Manager [employer]: Yony Bo MD MCHC (RBC) [Mass/Vol] 33.5 g/dL Normal 32.0-36.[address] [facility] Comment on above: Result Comment: For adults, a slight decrease in the calculated MCHC value (in the range of 30 to 32 g/dL) is most likely not clinically significant; however, it should be interpreted with caution in correlation with other red cell parameters and the patient's clinical condition. Performed By: #### 6 399, 496, 73141, 7600, 6517 #### [facility] [place] [address] Manager [employer]: Yony Bo MD MCV (RBC) [Entitic vol] 93.8 fL Normal 80.0-100.0 [facility] Comment on above: Performed By: #### 6 399, 496, 50441, 7600, 6517 #### [facility] [place] [address] Manager [employer]: Yony Bo MD Monocytes (Bld) [#/Vol] 0.621 10*3/uL Normal 200-950 [facility] Comment on above: Performed By: #### 6 399, 496, 96199, 7600, 6517 #### [facility] [place] [address] Manager [employer]: Yony Bo MD Monocytes/100 WBC (Bld) 9.0 % Normal [facility] Comment on above: Performed By: #### 6 399, 496, 56503, 7600, 6517 #### [facility] [place] [address] Manager [employer]: Yony Bo MD Neutrophils (Bld) [#/Vol] 4.409 10*3/uL Normal 0445-7148 [facility] Comment on above: Performed By: #### 6 399, 496, 33545, 7600, 6517 #### [facility] of [place] [address] Manager [employer]: Yony Bo MD Neutrophils/100 WBC (Bld) 63.9 % Normal [facility] Comment on above: Performed By: #### 6 399, 496, 90410, 7600, 6517 #### [facility] [place] [address] Manager [employer] Security: Yony Bo MD Platelet mean volume (Bld) [Entitic vol] 10.7 fL Normal 7.5-12.5 [facility] Comment on above: Performed By: #### 6 399, 496, 08506, 7600, 6517 #### [facility] [place] [address] Manager [employer]: Yony Bo MD Platelets (Bld) [#/Vol] 249 10*3/uL Normal 140-400 [facility] Comment on above: Performed By: #### 6 399, 496, 11045, 7600, 6517 #### [facility] [place] [address] Manager [employer] Security: Yony Bo MD RBC (Bld) [#/Vol] 5.19 10*6/uL Normal 4.20-5.80 [facility] Comment on above: Performed By: #### 6 399, 496, 99777, 7600, 6517 #### [facility] [place] [address] Manager [employer]: Yony Bo MD WBC (Bld) [#/Vol] 6.9 10*3/uL Normal 3.8-10.8 [facility] Comment on above: Performed By: #### 6 399, 496, 53189, 7600, 6517 #### [facility] [place] [address] Manager [employer] Security: Yony Bo MD COMPREHENSIVE METABOLIC PANE [facility] 06-07-2024 Albumin [Mass/Vol] 5.0 g/dL Normal 3.6-5.1 [facility] Comment on above: Performed By: #### 6 399, 496, 63250, 7600, 6517 #### [facility] of [address], [address] [place] [address] Manager [employer]: Yony Bo MD Albumin/Globulin [Mass ratio] 2.0 {ratio} Normal 1.0-2.5 [facility] Comment on above: Performed By: #### 6 399, 496, 12307, 7600, 6517 #### [facility] of [address], [address] [place] [address] Manager [employer]: Yony Bo MD ALP [Catalytic activity/Vol] 87 U/L Normal 36-130 [facility] Comment on above: Performed By: #### 6 399, 496, 13655, 7600, 6517 #### [facility] of [address], [address] [place] [address] Manager It Security: Yony Bo MD ALT [Catalytic activity/Vol] 45 U/L Normal 9-46 [facility] Comment on above: Performed By: #### 6 399, 496, 56092, 7600, 6517 #### [facility] [place] [address] Manager [employer] Security: Yony Bo MD AST [Catalytic activity/Vol] 24 U/L Normal 10-40 [facility] Comment on above: Performed By: #### 6 399, 496, 60762, 7600, 6517 #### [facility] [place] [address] Manager [employer] Security: Yony Bo MD Bilirubin [Mass/Vol] 0.5 mg/dL Normal 0.2-1.2 [facility] Comment on above: Performed By: #### 6 399, 496, 11799, 7600, 6517 #### [facility] [place] [address] Manager [employer] Security: Yony Bo MD BUN/CREATININE RATIO SEE NOTE: Normal 6-22 [facility] Comment on above: Result Comment: Not Reported: BUN and Creatinine are within reference range. Performed By: #### 6 399, 496, 83310, 7600, 6517 #### [facility] [address], [address] [place] [address] Manager [employer]: Yony Bo MD Calcium [Mass/Vol] 10.0 mg/dL Normal 8.6-10.3 [facility] Comment on above: Performed By: #### 6 399, 496, 13075, 7600, 6517 #### [facility] [place] [address] Manager [employer] Security: Yony Bo MD Chloride [Moles/Vol] 101 mmol/L Normal 98-110 [facility] Comment on above: Performed By: #### 6 399, 496, 02860, 7600, 6517 #### [facility] [place] [address] Manager [employer] Security: Yony Bo MD CO2 [Moles/Vol] 30 mmol/L Normal 20-32 [facility] Comment on above: Performed By: #### 6 399, 496, 04414, 7600, 6517 #### [facility] [place] [address] Manager It Security: Yony Bo MD Creatinine [Mass/Vol] 0.94 mg/dL Normal 0.60-1.29 [facility] Comment on above: Performed By: #### 6 399, 496, 12962, 7600, 6517 #### [facility] [place] [address] Manager [employer] Security: Yony Bo MD GFR/1.73 sq M.predicted among non-blacks MDRD (S/P/Bld) [Vol rate/Area] 100 mL/min/{1.73_m2} Normal > OR = 60 [facility] Comment on above: Performed By: #### 6 399, 496, 60248, 7600, 6517 #### [facility] of [address], [address] [place] [address] Manager [employer]: Yony Bo MD Globulin (S) [Mass/Vol] 2.5 g/dL Normal 1.9-3.7 [facility] Comment on above: Performed By: #### 6 399, 496, 48186, 7600, 6517 #### [facility] [place] [address] Manager [employer] Security: Yony Bo MD Glucose [Mass/Vol] 146 mg/dL High 65-99 [facility] Comment on above: Result Comment: Fasting reference interval For someone without known diabetes, a glucose value >125 mg/dL indicates that they may have diabetes and this should be confirmed with a follow-up test. Performed By: #### 6 399, 496, 20431, 7600, 6517 #### [facility] [place] [address] Manager [employer] Security: Yony Bo MD Potassium [Moles/Vol] 5.0 mmol/L Normal 3.5-5.3 [facility] Comment on above: Performed By: #### 6 399, 496, 53102, 7600, 6517 #### [facility] [place] [address] Manager It Security: Yony Bo MD Protein [Mass/Vol] 7.5 g/dL Normal 6.1-8.1 [facility] Comment on above: Performed By: #### 6 399, 496, 39432, 7600, 6517 #### [facility] [place] [address] Manager It Security: Yony Bo MD Sodium [Moles/Vol] 138 mmol/L Normal 135-146 [facility] Comment on above: Performed By: #### 6 399, 496, 40804, 7600, 6517 #### [facility] [place] [address] Manager It Security: Yony Bo MD Urea nitrogen [Mass/Vol] 14 mg/dL Normal 7-25 [facility] Comment on above: Performed By: #### 6 399, 496, 53760, 7600, 6517 #### [facility] [place] [address] Manager [employer] Security: Yony Bo MD HEMOGLOBIN A1con 06-07-2024 HEMOGLOBIN [...] children. Performed By: #### 6 399, 496, 34413, 7600, 6517 #### [facility] [place] [address] Manager It Security: Yony Bo MD LIPID PANEL, STANDARD 05-27 Cholesterol [Mass/Vol] 171 mg/dL Normal <200 [facility] Comment on above: Order Comment: FASTI NG:YES FASTING: YES Performed By: #### 6 399, 496, 09633, 7600, 6517 #### [facility] [place] [address] Manager It Security: Yony Bo MD Cholesterol in HDL [Mass/Vol] 42 mg/dL Normal > OR = 40 [facility] Comment on above: Order Comment: FASTI NG:YES FASTING: YES Performed By: #### 6 399, 496, 57988, 7600, 6517 #### [facility] [place] [address] Manager It Security: Yony Bo MD Cholesterol in LDL [Mass/Vol] [...] LDL-C. Maikel WHALEN et al. JOCELYN. 2013;310(19): 8941-7906 (http://education.iLost.Adeyoh/faq/HDS978) Performed By: #### 6 399, 496, 65112, 7600, 6517 #### [facility] [address], [address] [place] [address] Manager It Security: Yony Bo MD Cholesterol.total/Chol esterol in HDL [Mass ratio] 4.1 {ratio} Normal <5.0 [facility] Comment on above: Order Comment: FASTI NG:YES FASTING: YES Performed By: #### 6 399, 496, 22730, 7600, 6517 #### [facility] [address], [address] [place] [address] Manager It Security: Yony Bo MD NON HDL CHOLESTEROL 129 mg/dL (calc) Normal <130 [facility] Comment on above: Order Comment: FASTI NG:YES FASTING: YES Result Comment: For patients with diabetes plus 1 major ASCVD risk factor, treating to a non-HDL-C goal of <100 mg/dL (LDL-C of <70 mg/dL) is considered a therapeutic option. Performed By: #### 6 399, 496, 05394, 7600, 6517 #### [facility] [address], [address] [place] [address] Manager It Security: Yony Bo MD Triglyceride [Mass/Vol] 147 mg/dL Normal <150 [facility] Comment on above: Order Comment: FASTI NG:YES FASTING: YES Performed By: #### 6 399, 496, 99549, 7600, 6517 #### [facility] [address], [address] [place] [address] Manager It Security: Yony Bo MD PSA, TOTALon 06-07-2024 PSA, [...] disease. Performed By: #### 6 399, 496, 92779, 7600, 6517 #### [facility] [place] [address] [facility], [address] [place] [address] Manager It Security: Yony Bo MD Reminderson 05-09-2024 Reminders Reminders From: Sita Chahal To: EU - Administrative; Sent: 12/20/2023 11:12:10 EDT Show up: 03/12/2024 11:12:00 EST Subject: Ambulatory Reminder Due Date/Time: 06/10/2024 11:11:00 EDT Reminder/Recall patient needs scheduled with in [place] for a 6 month f/u LVM Normal [facility] Ambulatory Visit Summaryon 1 Ambulatory Visit Summary Ambulatory Visit Summary TIM PROCTOR :1975 Visit Date:12/20/2023 Ambulatory Visit Instructions Your [...] you for choosing us for your care. Sam Colón [facility] Urology Office/Clinic Noteon 12-20-2023 Urology Office/Clinic Note Urology Office/Clinic Note Chief Complaint frequency of urination HPI Staff New pt here for f/u to [facility] ER visit. Last seen IO 10/28/08 by [facility] for vasectomy consultation. Pt states that his frequency comes and goes. States that he has been diagnosed with diabetes but he does not take meds for it. [facility] ER 11/29/23 due to urinary frequency, ongoing for several days, wo dysuria or hematuria. UA was neg. Last urological imaging 07/13/22 [facility]. Most recent A1c 11/13/23 - 6.3 IPSS [...] Skin: No rashes or suspicious lesions Assessment/Plan [employer] [facility] ER f/u 11/29/23 for urinary frequency. 11/29/23 [...] control per PCP -F/U 6 months Ordered: 75891 Measure Post Void residual urine and/or bladder capacity by US- non-imaging E&M of New Patient Moderate 45-59 Min 35404 PSA Free & Total Urnls Dip Stick Auto w/o Microscopy POC 16844 2. Screening PSA (prostate specific antigen) (Z12.5: [...] E&M of New Patient Moderate 45-59 Min 35787 3. Diabetes mellitus (E11.9: Type 2 diabetes [...] E&M of New Patient Moderate 45-59 Min 31164 Follow-up With When Contact Information G (more content not included)... Normal [facility] Comment on above: Result Comment: Elec tronically Signed By: Leta Barrios\.br\Date and Time Signed: 12/20/23 11:35 EDT HbA1c (Bld) [Mass fraction]o n 11-13-2023 Interpretation and review of laboratory results Abnormal [facility] Laboratory - Hematology and Cell countson 11-13-2023 HbA1c (Bld) [Mass fraction] 6.3 % [facility] Urinalysis macro (dipstick) panel (U)on 11-13-2023 Bilirubin, UA Negative Negative - 4(70) +++ mg/dL [facility] Blood, UA Negative Negative - 50 Getachew/mcL [facility] Clarity, UA Clear [facility] Color, UA Yellow [facility] Glucose, UA Negative Negative - 1999(110) ++++ mg/dL [facility] Interpretation and review of laboratory results Normal [facility] Ketones, UA Negative Negative - 160(16) ++++ mg/dL [facility] Leukocytes, UA Negative Negative - 500+++ Poly/mcL [facility] Nitrite, UA Negative Negative - Positive [facility] pH, UA 5.0 5 - 9 [facility] Protein, UA Negative Negative - 1999(20) ++++ mg/dL [facility] Spec Grav, UA 1.025 1 - 1.03 [facility] Urobilinogen, UA 0.2 0.2 - 12 mg/dL [facility] Registrationon 08-20-2023 Registration [id number] Normal [facility] Registration [id number] Normal [facility] HEMOGLOBINon 07-12-2018 Hemoglobin (Bld) [Mass/Vol] 16.0 g/dL Normal 14.0-18.0 [facility] Comment on above: Performed By: #### H GB #### [facility] [address] [place] [address] Anishantionette Lopez XR CHEST 2 Von 07-12-2018 XR CHEST 2 V Patient: TIM PROCTOR Exam Date: 07/12/2018 : 1975 Gender:M Ordering : DR JESSICA GUAJARDO PA Admission #: [id number] Family : Order #: [id number] CLICK HERE TO VIEW EXAM RADIOLOGY REPORT [...] Jules M.D. on 07/12/2018 at 11:45 Normal [facility] Vital Signs Date Time Vital Sign Value Performing Clinician Facility 08-13-2024 10:52-0400 Body height 177.8 cm Essence Thompson MD Work Phone: [facility] 08-13-2024 10:52-0400 Body mass index (BMI) [Ratio] 18.08 kg/m2 Essence Thompson MD Work Phone: [facility] 08-13-2024 10:52-0400 Body weight 57.15 kg Essence Thompson MD Work Phone: [facility] 08-13-2024 10:52-0400 Diastolic blood pressure 72 mm[Hg] Essence Thompson MD Work Phone: [facility] 08-13-2024 10:52-0400 Heart rate 80 /min Essence Thompson MD Work Phone: [facility] 08-13-2024 10:52-0400 Respiratory rate 18 /min Essence Thompson MD Work Phone: [facility] 08-13-2024 10:52-0400 SaO2% (BldA) [Mass fraction] 97 % Essence Thompson MD Work Phone: [facility] 08-13-2024 10:52-0400 Systolic blood pressure 102 mm[Hg] Essence Thompson MD Work Phone: [facility] 06-25-2024 13:37-0400 Body height 177.8 cm Jessica Hemmer PA Work Phone: [facility] 06-25-2024 13:37-0400 Body mass index (BMI) [Ratio] 29.59 kg/m2 Jessica Hemmer PA Work Phone: [facility] 06-25-2024 13:37-0400 Body weight 93.53 kg Jessica Hemmer PA Work Phone: [facility] 06-25-2024 13:37-0400 Diastolic blood pressure 86 mm[Hg] Jessica Hemmer PA Work Phone: [facility] 06-25-2024 13:37-0400 Heart rate 83 /min Jessica Hemmer PA Work Phone: [facility] 06-25-2024 13:37-0400 Respiratory rate 16 /min Jessica Hemmer PA Work Phone: [facility] 06-25-2024 13:37-0400 SaO2% (BldA) [Mass fraction] 96 % Jessica ROOT Work Phone: [facility] 06-25-2024 13:37-0400 Systolic blood pressure 122 mm[Hg] Jessica ROOT Work Phone: [facility] 06-19-2024 11:13-0400 Diastolic blood pressure 80 mm[Hg] Helena Tim MD Work Phone: [facility] 06-19-2024 11:13-0400 Heart rate 77 /min Helena Tim MD Work Phone: [facility] 06-19-2024 11:13-0400 Respiratory rate 16 /min Helena Tim MD Work Phone: [facility] 06-19-2024 11:13-0400 SaO2% (BldA) [Mass fraction] 97 % Helena Tim MD Work Phone: [facility] 06-19-2024 11:13-0400 Systolic blood pressure 125 mm[Hg] Helena Tim MD Work Phone: [facility] 06-19-2024 08:02-0400 Body height 177.8 cm Helena Tim MD Work Phone: [facility] 06-19-2024 08:02-0400 Body temperature 98.2 [degF] Helena Tim MD Work Phone: [facility] 06-19-2024 08:02-0400 Body weight 92 kg Helena Tim MD Work Phone: [facility] 06-10-2024 15:32-0400 Body height 177.8 cm Helena Tim MD Work Phone: [facility] 06-10-2024 15:32-0400 Body mass index (BMI) [Ratio] 30.85 kg/m2 Helena Tim MD Work Phone: [facility] 06-10-2024 15:32-0400 Body weight 97.52 kg Helena Tim MD Work Phone: [facility] 06-10-2024 15:32-0400 Diastolic blood pressure 82 mm[Hg] Helena Tim MD Work Phone: [facility] 06-10-2024 15:32-0400 Heart rate 92 /min Helena Tim MD Work Phone: [facility] 06-10-2024 15:32-0400 SaO2% (BldA) [Mass fraction] 97 % Helena Tim MD Work Phone: [facility] 06-10-2024 15:32-0400 Systolic blood pressure 128 mm[Hg] Helena Tim MD Work Phone: [facility] 12-20-2023 10:09-0400 Blood Pressure Location Leta Galea [...] height 177.8 cm Jessica ROOT Work Phone: [facility] 11-13-2023 13:46-0400 Body mass index (BMI) [Ratio] 29.79 kg/m2 Jessica Hemmer PA Work Phone: [facility] 11-13-2023 13:46-0400 Body weight 94.17 kg Jessica Hemmer PA Work Phone: [facility] 11-13-2023 13:46-0400 Diastolic blood pressure 88 mm[Hg] Jessica Hemmer PA Work Phone: [facility] 11-13-2023 13:46-0400 Heart rate 83 /min Jessica Hemmer PA Work Phone: [facility] 11-13-2023 13:46-0400 Respiratory rate 16 /min Jessica Hemmer PA Work Phone: [facility] 11-13-2023 13:46-0400 SaO2% (BldA) [Mass fraction] 95 % Jessica Hemmer PA Work Phone: [facility] 11-13-2023 13:46-0400 Systolic blood pressure 130 mm[Hg] Jessica Hemmer PA Work Phone: [facility] Healthcare Encounters Encounter Date Encounter Type Care Provider Facility Start: 08-13-2024 End: 08-13-2024 Bamboo flowsheet Essence Thompson MD Work Phone: [facility] Start: 08-13-2024 End: 08-13-2024 Bamboo flowsheet Essence Thompson MD Work Phone: [facility] Start: 08-13-2024 End: 08-13-2024 Office outpatient new 45 minutes Essence Thompson MD Work Phone: [facility] Comment on above: Type 2 diabetes kimi itus with hyperglycemia, without long-term current use of insulin (HCC) (Primary Dx); Shaking; Encounter for dietary consultation; Vitamin D deficiency Start: 08-13-2024 End: 08-13-2024 ambulatory ESSENCE THOMPSON Not Available Start: 06-25-2024 End: 06-25-2024 Bamboo flowsheet Jessica Guajardo PA Work Phone: [facility] Start: 06-25-2024 End: 06-25-2024 Bamboo flowsheet Jessica Guajardo PA Work Phone: [facility] Start: 06-25-2024 End: 06-25-2024 Office outpatient visit 25 minutes Jessica Guajardo PA Work Phone: [facility] Comment on above: Other chest pain (Pr imary Dx); Palpitations; Gastroesophageal reflux disease without esophagitis; Generalized anxiety disorder (CMS/HCC) Start: 06-25-2024 End: 06-25-2024 ambulatory JESSICA GUAJARDO Not Available Start: 06-19-2024 ambulatory Leta Elizalde Facility :[facility] Start: 06-19-2024 End: 06-19-2024 Emergency department patient visit Helena Tim MD Work Phone: [facility] Work Phone: Start: 06-10-2024 End: 06-10-2024 [...] 12-20-2023 End: 12-20-2023 ambulatory Leta Elizalde Facility:[facility] Start: 12-20-2023 End: 12-20-2023 Patient encounter procedure Leta Elizalde [facility] Start: 11-29-2023 ambulatory Damon WOLFE Facilit y:[facility] Start: 11-13-2023 End: 11-13-2023 Bamboo flowsheet Jessica Guajardo PA Work Phone: [facility] Start: 11-13-2023 End: 11-13-2023 Bamboo flowsheet Jessica Guajardo PA Work Phone: [facility] Start: 11-13-2023 End: 11-13-2023 Office outpatient visit 25 minutes Jessica Guajardo PA Work Phone: [facility] Comment on above: DM (diabetes mellitu s), type 2 with complications (CMS/HCC) (Primary Dx); Urine frequency Start: 11-13-2023 End: 11-13-2023 ambulatory JESSICA GUAJARDO Not Available Start: 08-20-2023 End: 08-20-2023 ambulatory Damon WOLFE [facility] Start: 07-19-2018 Encounter for genera l adult medical examination without abnormal findings JESSICA GUAJARDO [facility] Start: 07-12-2018 End: 07-13-2018 Patient encounter procedure JESSICA GUAJARDO Facility:[facility] Encounter for genera l adult medical examination without abnormal findings [facility] Procedures Date Procedure Procedure Detail Performing Clinician Start: 08-13-2024 Gluc bld gluc mntr d ev cleared fda spec home use Essence Thompson MD Work Phone: Start: 06-19-2024 Plain chest X-ray Helena Tim MD Work Phone: Start: 11-13-2023 Urnls dip stick/tabl et rgnt non-auto w/o micrscp Jessica Guajardo PA Work Phone: Start: 11-13-2023 Hemoglobin glycosyla edvin a1c Jessica ROOT Work Phone: Procedure on eye Letabahman larsen Procedure on lower leg Sandra Elizalde Plan of Treatment Date Care Activity Detail Author Start: 06-06-2026 Screening for malign ant neoplasm of colon [facility] Start: 06-06-2025 Urine screening for protein Diabetes: Urine Protein Screening [facility] Start: 02-16-2025 Glaucoma screening Diabetes: R etinopathy Screening [facility] Start: 02-11-2025 End: 02-11-2025 Patient encounter procedure 02/11/2025 10:10 AM EST Office Visit [facility] [address] [place] [address] Essence Thompson MD [address] [place] [address] [facility] Start: 11-13-2024 Hemoglobin A1c measurement Diabetes: Hemoglobin A1C [facility] Start: 10-27-2024 Influenza vaccination Influenz a Vaccine (Season Ended) [facility] Start: 09-24-2024 End: 09-24-2024 Patient encounter procedure 09/24/2024 4:00 PM EDT Office Visit [facility] [address] [facility] [address] [place] [id number] Jessica Guajardo PA [address] [facility] [address] [place] [address] [facility] Start: 09-05-2024 Hemoglobin A1c measurement Diabetes: Hemoglobin A1C [facility] Start: 08-13-2024 End: 08-13-2025 ACTH ACTH Lab Routine Type 2 diabetes mellitus with hyperglycemia, without long-term current use of insulin (HCC) Expected: 08/13/2024 (Approximate), Expires: 08/13/2025 [facility] Comment on above: Expected: 08/13/2024 (Approximate), Expires: 08/13/2025 Start: 08-13-2024 End: 08-13-2025 Cobalamin (Vitamin B12) [Mass/volume] in Serum or Plasma Vitamin B12 Lab Routine Type 2 diabetes mellitus with hyperglycemia, without long-term current use of insulin (HCC) Expected: 08/13/2024 (Approximate), Expires: 08/13/2025 [facility] Comment on above: Expected: 08/13/2024 (Approximate), Expires: 08/13/2025 Start: 08-13-2024 End: 08-13-2025 Cortisol Cortisol Lab Routine Type 2 diabetes mellitus with hyperglycemia, without long-term current use of insulin (HCC) Expected: 08/13/2024 (Approximate), Expires: 08/13/2025 [facility] Comment on above: Expected: 08/13/2024 (Approximate), Expires: 08/13/2025 Start: 08-13-2024 End: 08-13-2025 Follicle stimulating hormone Follicle stimulating hormone Lab Routine Type 2 diabetes mellitus with hyperglycemia, without long-term current use of insulin (HCC) Expected: 08/13/2024 (Approximate), Expires: 08/13/2025 [facility] Comment on above: Expected: 08/13/2024 (Approximate), Expires: 08/13/2025 Start: 08-13-2024 End: 08-13-2025 Growth hormone Growth hormone Lab Routine Type 2 diabetes mellitus with hyperglycemia, without long-term current use of insulin (HCC) Expected: 08/13/2024 (Approximate), Expires: 08/13/2025 [facility] Comment on above: Expected: 08/13/2024 (Approximate), Expires: 08/13/2025 Start: 08-13-2024 End: 08-13-2025 Insulin-like growth factor 1 Insulin-like growth factor 1 Lab Routine Type 2 diabetes mellitus with hyperglycemia, without long-term current use of insulin (HCC) Expected: 08/13/2024 (Approximate), Expires: 08/13/2025 [facility] Comment on above: Expected: 08/13/2024 (Approximate), Expires: 08/13/2025 Start: 08-13-2024 End: 08-13-2025 Luteinizing hormone Luteinizing hormone Lab Routine Type 2 diabetes mellitus with hyperglycemia, without long-term current use of insulin (HCC) Expected: 08/13/2024 (Approximate), Expires: 08/13/2025 [facility] Comment on above: Expected: 08/13/2024 (Approximate), Expires: 08/13/2025 Start: 08-13-2024 End: 08-13-2025 Magnesium [Mass/volume] in Serum or Plasma Magnesium Lab Routine Type 2 diabetes mellitus with hyperglycemia, without long-term current use of insulin (HCC) Expected: 08/13/2024 (Approximate), Expires: 08/13/2025 [facility] Comment on above: Expected: 08/13/2024 (Approximate), Expires: 08/13/2025 Start: 08-13-2024 End: 08-13-2025 Prolactin Prolactin Lab Routine Type 2 diabetes mellitus with hyperglycemia, without long-term current use of insulin (HCC) Expected: 08/13/2024 (Approximate), Expires: 08/13/2025 [facility] Comment on above: Expected: 08/13/2024 (Approximate), Expires: 08/13/2025 Start: 08-13-2024 End: 08-13-2025 Testosterone [Mass/volume] in Serum or Plasma Testosterone Lab Routine Type 2 diabetes mellitus with hyperglycemia, without long-term current use of insulin (HCC) Expected: 08/13/2024 (Approximate), Expires: 08/13/2025 [facility] Comment on above: Expected: 08/13/2024 (Approximate), Expires: 08/13/2025 Start: 08-13-2024 End: 08-13-2025 Thiamine (aka Vitamin B1) Thiamine (aka Vitamin B1) Lab Routine Type 2 diabetes mellitus with hyperglycemia, without long-term current use of insulin (HCC) Expected: 08/13/2024 (Approximate), Expires: 08/13/2025 [facility] Comment on above: Expected: 08/13/2024 (Approximate), Expires: 08/13/2025 Start: 08-13-2024 End: 08-13-2025 Thyrotropin [Units/volume] in Serum or Plasma TSH Lab Routine Shaking Expected: 08/13/2024 (Approximate), Expires: 08/13/2025 [facility] Comment on above: Expected: 08/13/2024 (Approximate), Expires: 08/13/2025 Start: 08-13-2024 End: 08-13-2025 Thyroxine (T4) free [Mass/volume] in Serum or Plasma T4, free Lab Routine Shaking Expected: 08/13/2024 (Approximate), Expires: 08/13/2025 [facility] Work Phone: Comment on above: Expected: 08/13/2024 (Approximate), Expires: 08/13/2025 Start: 08-13-2024 End: 08-13-2024 Patient encounter procedure 08/13/2024 11:00 AM EDT Office Visit [facility] [address] [place] [address] Essence Thompson MD [address] [place] [address] Type 2 diabetes mellitus with hyperglycemia, without long-term current use of insulin (HCC); DM (diabetes mellitus), type 2 with complications (HCC) [facility] Comment on above: Type 2 diabetes kimi itus with hyperglycemia, without long-term current use of insulin (HCC); DM (diabetes mellitus), type 2 with complications (HCC) Start: 06-25-2024 End: 06-25-2025 Cardiac stress study Procedure STRESS TEST TREADMILL Imaging Routine Other chest pain Palpitations Expected: 06/25/2024 (Approximate), Expires: 06/25/2025 [facility] Comment on above: Expected: 06/25/2024 (Approximate), Expires: 06/25/2025 Start: 06-25-2024 End: 06-25-2025 Holter monitor study Holter monitor Imaging Routine Other chest pain Palpitations Expected: 06/25/2024 (Approximate), Expires: 06/25/2025 [facility] Work Phone: Comment on above: Expected: 06/25/2024 (Approximate), Expires: 06/25/2025 Start: 06-25-2024 End: 06-25-2024 Patient encounter procedure 06/25/2024 1:30 PM EDT Office Visit [facility] [address] [place] [id number] Jessica Guajardo PA [address] [facility] [address] [place] [address] Arrived [facility] Comment on above: Arrived Start: 06-10-2024 End: 06-10-2024 Patient encounter procedure 06/10/2024 3:30 PM EDT Office Visit [facility] [address] [facility] [address] [place] [address] Helena Tim MD [address] [facility] [address] [place] [address] Arrived [facility] Comment on above: Arrived Start: 05-14-2024 Urine screening for protein Diabetes: Urine Protein Screening [facility] Start: 02-12-2024 Hemoglobin A1c measurement Diabetes: Hemoglobin A1C [facility] Start: 10-28-2023 Influenza vaccination Influenza Vacc ine (#1) [facility] Start: 08-15-2023 Hemoglobin A1c measurement Diabetes: Hemoglobin A1C [facility] Start: 1975 Screening for malign ant neoplasm of colon [facility] Patient Education Chest pain [facility] Work Phone: Patient referral [facility] Work Phone: Immunizations Immunization Date Immunization Notes Care Provider Fa cility 05-15-2023 tetanus toxoid, redu polo diphtheria toxoid, and acellular pertussis vaccine, adsorbed Jessica ROOT Work Phone: [facility] Healthcare Payers Date Payer Category Payer Self-pay 2024 Unknown [id number] 2022 Blue Cross Blue Shield [id number] 2022 Unknown BCBS BCBS [id number] [id number] 2022-Present [phone] [address] [place] [address] [id number] 2022 Unknown [id number] 2022 Unknown [id number] 1975 Unknown [id number] 3 1975 Unknown [id number] 7 1975 Unknown [id number] 7 1975 Unknown [id number] 7 1975 Unknown [id number] 7 1975 Unknown [id number] 59 1975 Unknown [id number] 59 1975 Unknown [id number] 59 1975 Unknown [id number] 59 1959 Unknown [id number] Unknown [id number] 1 Social History Date Type Detail Facility Start: 11-13-2023 End: 12-20-2023 Tobacco smoking status Never smoked tobacco (finding) [facility] Tobacco smoking status Never [facility] Start: 05-15-2023 End: 06-09-2024 Sex Assigned At Male [facility] Start: 05-15-2023 Tobacco use and exposure User of smokeless tobacco [facility] End: 2023 History of tobacco use Chews Tobacco [facility] Start: 05-15-2023 End: 06-25-2024 Alcoholic beverage intake [...] to any clubs or organizations such as adventism groups, unions, fraternal or athletic groups, or [...] To some extent [facility] (I/We) worried whedarren er (my/our) food would run out before (I/we) got money to buy more. Never true [facility] Start: 06-10-2024 End: 06-25-2024 Tobacco smoking status NHIS Ex-smoker [facility] History of tobacco use Current smoker [facility] Start: 06-19-2024 Sex Male (finding) [facility] Start: 1975 Sex Assigned At Male [facility] Functional Status Date Assessment Result Facility 12-20-2023 Functional Status N/A [facility] Clinical Notes 11-13-2023 to 08-13-2024 Essence Thompson MD - 08/13/2024 11:00 AM IVETT Cates - 06/25/2024 1:30 PM Adan Tim MD - 06/10/2024 3:42 PM Adan Tim MD - 06/10/2024 3:42 PM EDT Note Date & Type Note Facility 08-13-2024 History of Present illness Narrative Tim Proctor is a 49 y.o. male Helena Tim MD presents with chief complaint of Diabetes (CORTISOL NEW REF/ LAB) 07/2024 History of Present Illness The patient is a 49-year-old male who presents as a new patient for evaluation of diabetes. He is referred by Dr. Puga. He has been diagnosed with diabetes for almost 2 years, which is currently controlled through diet. He was previously on metformin but is not currently taking any medication. His A1c level was 6.9 two months ago and is currently 5.9. He reports experiencing tremors upon waking and has not undergone any thyroid function tests. SUBJECTIVE: MEDICATIONS: Current Outpatient Medications Medication Instructions busPIRone (BUSPAR) 10 mg, Oral, 2 times daily PRN omeprazole (PRILOSEC) 20 mg, Daily before breakfast ALLERGIES: Allergies Allergen Reactions Penicillin V Unknown Past Medical History: Diagnosis Date Anxiety Diabetes mellitus (HCC) Elevated ALT measurement GERD (gastroesophageal reflux disease) History of seborrheic keratosis Hyperlipidemia Past Surgical History: Procedure Laterality Date EYE SURGERY retina EYE SURGERY Right 2023 Lens replacement FEMUR SURGERY 1983 hip REVIEW OF SYMPTOMS: 14 POINT OF SYSTEM REVIEWED AND NEGATIVE OBJECTIVE: Constitutional: Afebrile @ home; no weakness or night sweats SKIN: No change in skin color; no itching, rash or lesions; no hair loss; HEENT: No HAs or injury; no dizziness; No difficulty with vision; no eye pain, discharge or lesions; no hearing loss or difficulty; no nasal discharge, NECK: No pain, limitation of motion, lumps or swollen glands RESP: No cough, wheezing or difficulty breathing. No CP with breathing; CARDIO: No CP , SOB or fatigue, No edema, palpitations or dyspnea with exertion GI: No N/V/D or abd. pain; good appetite with no recent change. No heart burn, liver or gallbladder disease; no rectal bleeding or pain : No urinary pain , frequency or odor. MUSCULOSKELETAL: No muscle pain or cramps; no extremity weakness.No joint pain, stiffness, swelling or limitation of movement NEUROLOGY: No H/O seizures, stroke or fainting. No weakness, tremors. Hematology: No bleeding problems or excessive bruising ENDOCRINE: No increase in hunger, thirst or urination; admits compliance to medical management plan Feet: numbness tingling , ulcers or skin break Lab Results Component Value Date HGBA1C 5.9 08/13/2024 HGBA1C 6.9 (H) 06/06/2024 HGBA1C 6.3 11/13/2023 Lab Results Component Value Date GLU 126 08/13/2024 GLU 146 (H) 06/06/2024 GLU NEGATIVE 05/15/2023 Visit Vitals BP 102/72 Pulse 80 Resp 18 Ht 5' 10 Wt 126 lb SpO2 97% BMI 18.08 kg/m Smoking Status Former BSA 1.68 m ASSESSMENT AND PLAN: Assessment/Plan Diagnoses and all orders for this visit: Type 2 diabetes mellitus with hyperglycemia, without long-term current use of insulin (HCC) - POCT glucose manually resulted - POCT glycosylated hemoglobin (Hb A1C) docked device - Ambulatory referral to Endocrinology - Cortisol; Future - ACTH; Future - Growth hormone; Future - Luteinizing hormone; Future - Follicle stimulating hormone; Future - Insulin-like growth factor 1; Future - Prolactin; Future - Magnesium; Future - Vitamin B12; Future - Thiamine (aka Vitamin B1); Future - Testosterone; Future Shaking - T4, free; Future - TSH; Future Encounter for dietary consultation Vitamin D deficiency Assessment & Plan 1. Diabetes mellitus. His A1c level has improved from 6.9 two months ago to 5.9 currently, indicating good control with diet alone. Kidney function is within normal limits, and cholesterol levels are stable (total cholesterol 171, HDL 42, triglycerides 147, LDL 105). He is advised to continue with diet control and no medication is needed at this time. 2. Hormonal imbalance. He reports occasional shaking upon waking. To rule out any underlying hormonal issues, a comprehensive set of labs will be ordered, including thyroid function tests, cortisol levels, and other pituitary hormones and testosterone. The results will be communicated to him. Follow-up The patient will follow up in 6 months. Answers submitted by the patient for this visit: Diabetes Questionnaire (Submitted on 08/12/2024) Chief Complaint: Diabetes problem Diabetes type: type 2 MedicAlert ID: No Disease duration: 2 Years blurred vision: No chest pain: No fatigue: No foot paresthesias: No foot ulcerations: No polydipsia: No polyphagia: No polyuria: Yes visual change: No weakness: No weight loss: No Symptom course: improving confusion: No speech difficulty: No dizziness: No nervous/anxious: Yes headaches: No hunger: No mood changes: No pallor: No seizures: No tremors: Yes sleepiness: No sweats: Yes blackouts: No hospitalization: No nocturnal hypoglycemia: Yes required assistance: No required glucagon: No CVA: No heart disease: No impotence: No nephropathy: No peripheral neuropathy: Yes PVD: No retinopathy: No CAD risks: no known risk factors Current treatments: none Treatment compliance: all of the time Home blood tests: 3-4 x per day Home urines: <1 x per month Monitoring compliance: good Blood glucose trend: no change breakfast time: 9-10 am breakfast glucose level: 90-110 dinner time: 6-7 pm dinner glucose level: 90-110 Bedtime: 9-10 pm Bedtime glucose level: 90-110 High score: 130-140 Overall: 90-110 Weight trend: stable Current diet: generally healthy Meal planning: carbohydrate counting Exercise: daily Dietitian visit: No Eye exam current: Yes Sees adjunct business instructor: No documented in this encounter [facility] 06-25-2024 History of Present illness Narrative Images from the original note were not included. Subjective Patient ID: Tim Proctor is a 49 y.o. male who presents for [facility] follow up. Tim is present today for [facility] follow up on 06/19/24. Dx. Chest [...] 09/24/2024) for Diabetes. documented in this encounter [facility] 06-10-2024 History of Present illness Narrative Associated [...] improve, for Recheck. documented in this encounter [facility] 12-20-2023 Evaluation + Plan note Diagnostic Tests [...] to keep your urine pale yellow. ?Take ucqh-kve-muzlxbv or prescription medicines. ?Eat foods that are high in fiber, such as beans, whole grains, and fresh fruits and vegetables. ?Limit foods that are high in fat and processed sugars, such as fried or sweet foods. General instructions Take kpda-xcj-qeoofyb and prescription medicines only as told by [...] the muscles that help control urination. Take snkn-ymk-qbjdeuk and prescription medicines only as told by your health care provider. Contact a health care provider if your symptoms do not improve or get worse. This information is not intended to replace advice given to you by your health care provider. Make sure you discuss any questions you have with your health care provider. Document Revised: 09/17/2020 Document Reviewed: 09/17/2020 [employer] Patient Education 2023 ITema. Follow Up Care 11/29/2023 10:48:14 With:Leta Barrios, URL Address: When:6 months Comments:pending PSA level [facility] 12-20-2023 Note Patient Education Urology Urinary Frequency, [...] keep your urine pale yellow. ? Take uebx-txb-exhveib or prescription medicines. ? Eat foods that are high in fiber, such as beans, whole grains, and fresh fruits and vegetables. ? Limit foods that are high in fat and processed sugars, such as fried or sweet foods. General instructions ??? Take gxmm-rxu-pxzmbfr and prescription medicines only as told by [...] muscles that help control urination. ??? Take rika-kmv-lltqhsu and prescription medicines only as told by your health care provider. ??? Contact a health care provider if your symptoms do not improve or get worse. This information is not intended to replace advice given to you by your health care provider. Make sure you discuss any questions you have with your health care provider. Document Revised: 09/17/2020 Document Reviewed: 09/17/2020 [employer] Patient Education ? 2023 ITema. [facility] 11-13-2023 History of Present illness Narrative Images [...] Final Glucose, UA 11/13/2023 Negative Negative - 2000(110) ++++ mg/dL Final Bilirubin, UA 11/13/2023 Negative Negative - 4(70) +++ mg/dL Final Ketones, UA 11/13/2023 Negative Negative - 160(16) ++++ mg/dL Final Spec Grav, UA 11/13/2023 1.025 1 - 1.03 Final Blood, UA 11/13/2023 Negative Negative - 50 Getachew/mcL Final pH, UA 11/13/2023 5.0 5 - 9 Final Protein, UA 11/13/2023 Negative Negative - 2000(20) ++++ mg/dL Final Urobilinogen, UA 11/13/2023 0.2 [...] uncontrolled Urine frequency documented in this encounter [facility]* Diagnosis Adult wellness visit- Primary Type 2 diabetes mellitus with other specified complication Mixed hyperlipidemia (CMS/HCC) Mixed hyperlipidemia Urine test positive for microalbuminuria documented in this encounter [facility] HealthcareEvaluation noteNo assessment information availableAvita [facility] Work Phone: Evaluation note* Diagnosis Adult wellness visit- Primary Type 2 diabetes mellitus with other specified complication Mixed hyperlipidemia (CMS/HCC) Mixed hyperlipidemia Urine test positive for microalbuminuria Other chest pain- Primary Palpitations Gastroesophageal reflux disease without esophagitis Esophageal reflux Generalized anxiety disorder (CMS/FORMER[facility]) Generalized anxiety disorder documented in this encounter [facility] HealthcareEvaluation note* Diagnosis Adult wellness visit- Primary Type 2 diabetes mellitus with other specified complication (HCC) Mixed hyperlipidemia Mixed hyperlipidemia Urine test positive for microalbuminuria Type 2 diabetes mellitus with hyperglycemia, without long-term current use of insulin ([facility])- Primary Shaking Abnormal involuntary movements Encounter for dietary consultation Vitamin D deficiency documented in this encounter [facility] HealthcareHospital course Narrative No data available for this section [facility] Hospital Discharge instructions Additional Instructions Follow-up with your primary care doctor [facility] for [facility] [employer] Work Phone: Progress note No data available [...] and content) DATE CREATED AUTHOR 10/04/2018 [facility] DATE CREATED AUTHOR AUTHOR'S ORGANIZ ATION 05/12/2024 [facility] DATE CREATED AUTHOR AUTHOR'S ORGANIZ ATION 06/08/2024 [facility] DATE CREATED AUTHOR AUTHOR'S ORGANIZ ATION 07/06/2024 [facility] DATE CREATED AUTHOR AUTHOR'S ORGANIZ ATION 08/16/2024 [facility] EPIC Patient Care team informatio n (unrecognized section and content) Pharmacist Hospital Relationship Specialty Start Date End Date Helena Tim MD [address] [place] [address] PCP - General Family Medicine 07/17/22 Fran Montano MD [address] [place] [address] PCP - [place] [employer] 02/26/23 Pharmacist Hospital Relationship Specialty Start Date End Date Helena Tim MD [address] [facility] [address] [place] [address] PCP - General Family Medicine 07/17/22 Fran Montano MD [address] [facility] [address] [place] [address] PCP - [place] [employer] 02/26/23 Pharmacist Hospital Relationship Specialty Start Date End Date Helena Tim MD [address] [facility] [address] [place] [address] PCP - General Family Medicine 07/17/22 Pharmacist Hospital Relationship Specialty Start Date End Date Helena Tim MD [address] [facility] [address] [place] [address] PCP - General Family Medicine 07/17/22 Team Status: Active Member Role Status Dates Helena Tim MD Primary Care Provider Active Team Status: Inactive Member Role Status Dates Helena Tim MD Primary Care Provider Active S tart: June 19, 2024 End: June 19, 2024 Alvin Lay DO Emergency Provider Active Sta rt: June 19, 2024 End: June 19, 2024 Pharmacist Hospital Relationship Specialty Start Date End Date Helena Tim MD [address] [facility] [address] [place] [address] PCP - General Family Medicine 07/17/22 Pharmacist Hospital Relationship Specialty Start Date End Date Helena Tim MD [address] [facility] [address] [place] [address] PCP - General Family Medicine 07/17/22 Pharmacist Hospital Relationship Specialty Start Date End Date Helena Tim MD [address] [facility] [address] [place] [address] PCP - General Family Medicine 07/17/22 Reason for Visit (unrecogniz ed section and content) Reason Comments Annual Exam Reason Comments Diabetes CORTISOL NEW REF/ LA B Specialty Diagnoses / Procedures Referred By Contac t Referred To Contact Endocrinology Diagnoses DM (diabetes mellitus), type 2 with complications (HCC) Procedures AK OFFICE/OUTPATIENT NEW HIGH MDM 60 MINUTES Helena Tim MD [address] [facility] [address] [place] [address] Phone: tel: fax: Essence Thompson MD [address] [place] [address] Phone: tel: fax: Referral ID Status Reason Start Date Expiration Date Visits Requested Visits Authorized [id number] Pending Review Specialty Services Required 07/23/2024 01/19/2025 1 1 Goals (unrecognized section and content) Goals may [...] BE BASED ON THE PRIMARY CLINICAL RECORDS. [employer] provides no warranty or guarantee of the accuracy or completeness of information in this document.
--- NOTE | 2024-09-19 20:20 | PC.NURSE ---
C/O burning pain wrapped around the R flank. Pain started 2 days ago, but the rash began to show up yesterday. Denies known hx of shingles.
--- NOTE | 2024-09-19 20:26 | ED.GENADUL1 ---
HPI HPI - General Adult General Chief complaint: Skin/Abscess/Foreign Body Stated complaint: RASH Time Seen by Provider: 09/19/24 20:12 Source: patient Mode of arrival: walk-in Limitations: no limitations History of Present Illness HPI narrative: Patient presents to the emergency department with a rash to the left side of back and abdomen, ongoing for the past 2 days. Patient states that he had pain to the area the prior day but rash did not start till yesterday. Patient denies any nausea, vomiting or diarrhea. Patient denies any fevers or chills. Onset (ago): day(s) (1) Location: Reports back and abdomen Severity: moderate Quality: Reports burning Pain Consistency: Reports intermittent Relieving factors: Reports rest Associated symptoms: Reports denies other symptoms Related Data Previous Rx's ?Medication ?Instructions ?Recorded etodolac 400 mg tablet (Lodine) 400 mg PO Q12H PRN pain #14 tabs 09/19/24 valacyclovir 1 gram tablet 1,000 mg PO Q8H 7 days #21 tabs 09/19/24 (Valtrex) Allergies Allergy/AdvReac Type Severity Reaction Status Date / Time penicillamine Allergy Mild Unknown Verified 09/19/24 20:09 Opioid HPI Opioid Management Most Recent Opioid Data: Last Pain Scale 4 09/19/24, 20:37 Last MAR Pain Assessment 09/19/24, 20:37 Review of Systems ROS Status of ROS 10 or more systems reviewed and unremarkable except as noted in history and below Constitutional Denies: fever or chills Cardiovascular Denies: chest pain Respiratory Denies: shortness of breath Integumentary/Breast Reports: rash PFSH PFSH Social History Little interest or pleasure in doing things: not at all Feeling down, depressed, or hopeless: not at all Exam Constitutional Vital Signs, click to edit/add: Last Vital Signs Temp 97.8 F 09/19/24 20:09 Pulse 78 09/19/24 20:09 Resp 20 09/19/24 20:09 BP 125/83 09/19/24 20:09 Pulse Ox 98 09/19/24 20:09 O2 Del Method Room Air 09/19/24 20:09 Documenting provider has reviewed patient's vital signs: yes Common normals: no apparent distress, average body habitus, oriented x3, no limitations, healthy appearing, alert and well nourished HENMT Common normals: normocephalic Chest Common normals: inspection of chest normal Respiratory Common normals: normal respiratory effort Cardio Common normals: regular rate GI Common normals: soft to palpation Other: Rash to the left side of the abdomen does not cross the midline and into the back, mildly vesicular in nature GI image (male):  1. Course Vital Signs Vital signs: Vital Signs Temperature 97.8 F 09/19/24 20:09 Pulse Rate 78 09/19/24 20:09 Respiratory Rate 09/19/24 20:09 Blood Pressure 125/83 09/19/24 20:09 Pulse Oximetry 98 09/19/24 20:09 Oxygen Delivery Method Room Air 09/19/24 20:09 Temperature 97.8 F 09/19/24 20:09 Pulse Rate 78 09/19/24 20:09 Respiratory Rate 09/19/24 20:09 Blood Pressure 125/83 09/19/24 20:09 Pulse Oximetry 98 09/19/24 20:09 Oxygen Delivery Method Room Air 09/19/24 20:09 Medical Decision Making [facility] Narrative Medical decision making narrative: Patient presents emergency department with a rash to the left side of the back and abdomen following 1 nerve was preceded by 1 day of pain without rash. Patient denies any associated symptoms otherwise. Rash is consistent with a shingles which I described and explained to the patient. He will be treated for pain, with antivirals and referred to PCP for follow-up Medical Records Medical records reviewed: Yes I reviewed the patient's medical records Discharge Plan Discharge Chief Complaint: Skin/Abscess/Foreign Body Clinical Impression: Herpes zoster Qualifiers: Herpes zoster complications: without complications Qualified Code(s): B02.9 - Zoster without complications Patient Disposition: Home, Self-Care Time of Disposition Decision: 20:31 Condition: Good Mode of Transportation: Private Vehicle Prescriptions / Home Meds: New valacyclovir [Valtrex] 1 gram tablet 1,000 mg PO Q8H 7 Days Qty: 21 0RF etodolac [Lodine] 400 mg tablet 400 mg PO Q12H PRN (Reason: pain) Qty: 14 0RF Print Language: Citizen Of [place] Instructions: Shingles (ED) Referrals: TOSHA GUAJARDO [Primary Care Provider, Family Practice] - 1 week Discharge Date/Time: 09/19/24 20:55
[2024-09-19] MEDS: VALACYCLOVIR HCL 500 MG TABLET 1000 MG PO (20:34)
[2024-09-19] MEDS: KETOROLAC TROMETHAMINE 30 MG/ML VIAL IM (20:37)
== END 2024-09-19 20:55 | disposition home or self-care (01) ==
PROVIDERS: Emergency Provider Internal Medicine; PCP Physician Assistant
DX: B02.9 Zoster without complications (principal)
CPT/HCPCS: 96372; 99284; J1885